=== PATIENT | male | born 2000 ===

== ENCOUNTER 2025-02-19 13:08 | Inpatient (IN) | payer MEDICARE, OTHER ==
[~2025-02-19] VITALS: Wt 104.2 kg
[2025-02-19 17:40] VITALS: BP 121/73
[2025-02-19] MEDS ORDERED: Aluminum Hydroxide 320MG/5ML 473 ML PO PRN (17:55)
[2025-02-19] MEDS ORDERED: Polyethylene Glycol 3350 17 gm PO PRN (18:00)
[2025-02-19] MEDS ORDERED: Ondansetron 4 MG SoluTab MM PRN (18:00)
[2025-02-19 18:02] VITALS: BP 121/73
--- NOTE | 2025-02-19 18:35 | NUR ---
ADMISSION ASSESSMENT: 17:33 PT WAS ADMITTED TO [facility] FROM [facility] VIA SECURE TRANSPORT. PT WAS FOUND BY HIS MOM STANDING IN THE OCEAN FULLY DRESSED. HE WAS BROUGHT INTO THE HOSPITAL BY HIS BROTHER. BY REPORT HE HAS BEEN OFF OF HIS MED. RN JOSEPHINE REPORTED THAT PT HAS BEEN EXIT SEEKING SINCE HIS ARRIVAL. SKIN CHECK WAS COMPLETED BY TWO RN'S REQUIRED. PT WAS UNCOOPERATIVE WITH THE INTAKE PROCESS, FORMS WERE SIGNED BY THE PT. HE WAS UNWILLING AT THE OTHER HOSPITAL TO TAKE ORAL MEDS AND WAS GIVEN VALIUM 10MG IM AND ZYPREZA 10MG IM WHEN HE BEGAN TO ESCALATE. HE IS NOW OM HIS DOORWAY TALKING WITH A PEER.
[2025-02-19 19:09] VITALS: BP 132/87
--- NOTE | 2025-02-20 05:45 | NUR ---
SHIFT SUMMARY Pt is A&O to self only, minimally cooperative, eye contact is appropriate. Pt denies SI, HI, and hallucinations. He also denies pain or other medical issues. Pt is disorganized, speech is low volume, pressured, rapid, and tangential, initially understandable when answering questions, but degrading into mumbling as he continues his answers; very hard to understand. Dayshift RN was unable to complete admission because of apparent paranoia he felt in the visitor room. This RN completed the admission assessments, but the patient did not want to go into a private setting, preferring to have the assessment done in the jaramillo just outside his room. Pt denies SI and HI. He would not answer any questions RT hallucinations. Insight and judgement are poor to non-existent. Pt retired to his room after evening snack, but was up most of the night. Staff offered the sensory room, which he accepted for about an hour before returning to his room. Pt did appear to be sleeping by about 0500. Pt is on q15m safety precautions per unit protocol.
[2025-02-20] MEDS ORDERED: Multivitamins 1 Tab PO SCH (09:00)
[2025-02-20 09:22] VITALS: BP 124/79
--- NOTE | 2025-02-20 18:24 | NUR ---
SHIFT SUMMARY PT ADMITTED FOR PSYCHOSIS. PT'S SPEECH IS TANGENTIAL, MUMBLED, AND AT TIME WORD SALAD. FOR THIS REASON IT IS HARD TO ASSESS PT. HE IS SOMEWHAT GUARDED AND HAS PARANOID DELUSIONS. PT ATTENDED GROUPS AND MEALS THIS SHIFT. HE IS COOPERATIVE WITH CARE. CONTINUES TO BE MONITORED Q15 PER UNIT PROTOCOL.
[2025-02-20] MEDS ORDERED: LORazepam 2 MG/ML 1ML Injection IM PRN (19:05)
[2025-02-20] MEDS ORDERED: DiphenhydrAMINE HCl 50 MG/ML 1ML Vial IM PRN (19:05)
[2025-02-20] MEDS ORDERED: Haloperidol Lactate Inj. 5 MG/ML Injection IM PRN (19:05)
[2025-02-20 20:50] VITALS: BP 123/78
--- NOTE | 2025-02-20 23:21 | NUR ---
Patient had 1/4 cup of ice cream at snack time, then refused any further meds or food after trazodone and belatonin. Explained thata esau Smith would help him with his sleep as well, and that he would feel more like participating tommorow during the day.
--- NOTE | 2025-02-21 00:26 | NUR ---
Encouraged patient to take a second Trazodone, but he didn't want to. Wide awake, standing in corner of room. Will continue close observation every 15 minutes for safety and comfort.
--- NOTE | 2025-02-21 01:26 | NUR ---
patient wide awake still and sitting up in bed aginst the wall. Agreed to take Zyprexa Zydis for a MASS score of 4. will continue monitoring
--- NOTE | 2025-02-21 04:36 | NUR ---
Patient is very alert, however unsure about orientation due to mumbling and word salad most of the time when conversing. Patient does get some words out to make his point when confronted with food or medications. Early in the evening, the patient came to this RN and asked what meds would he be expected to take at bedtime. I told him trazodone and melatonin. He said with ice cream. After taking the pills and eating one quarter of the ice cream, I explained that the Doctor had ordered something elso for him as well, and the patient refused before even talking about it. Patient stayed up sitting up and standing in his rom until approximately 0115, Zyprexa Zydis was offered to the patient to help him sleep and he took it. HE has been sleeping since 0145. Will continue observing every 15 minutes for patient safety and comfort
[2025-02-21 07:47] LABS: CHOL/HDL RATIO 2.4; Cholesterol 91 mg/dL (50-200); HDL Cholesterol 38 mg/dL (>39); LDL/HDL RATIO 1.1; Low Density Lipoprotein Chol 41 mg/dL (0-110); Triglycerides 61 mg/dL (30-140); Very Low Density Lipoprot Chol 12 mg/dL (6-28)
--- NOTE | 2025-02-21 17:31 | NUR ---
SHIFT SUMMARY PT IS AA&O TO SELF. HE IS PLEASANT AND COOPERATIVE WITH WITH CARE. EYE CONTACT IS LIMITED. SPEECH IS NONLINEAR AND UNORGANIZED. HE IS ABLE TO ANSWER SOME QUESTIONS WITH SHORT ONE OR TWO WORD RESPONSES BEFORE GOING OFF TOPIC. HE WAS COMPLIANT WITH MEDICATIONS THIS MORNING. HE WAS ABLE TO REPORT THAT ZYPREXA DID HELP LAST NIGHT. HE ALSO STATED THAT HE HAS TAKEN ABILIFY IN THE PAST AND DENIED ANY ISSUES. PLAN IS TO START ZYPREXA THIS EVENING AND ABILIFY IN THE AM. HE IS AGREEABLE. HE HAS BEEN UP FOR MEALS, SHOWER AND GROUPS. HE DENIES SI, HI. WILL CONTINUE PLAN OF CARE
[2025-02-21 19:58] VITALS: BP 120/79
--- NOTE | 2025-02-22 04:15 | NUR ---
Jesus is getting more alert and oriented each day. He spent most of his evening out in the milieu passing his time watching movies or attending snack time. He did have some dyspepsia early in the evening, and was able to express to me that he needed some Zofran which fixed him right up. Patient denies SI<HI and AVTH during evening assessment. Zyprexa given at bedtime and sleep came almost immediately. Will continue close observation every 15 minutes through the night for comfort and safety.
[2025-02-22 09:06] VITALS: BP 119/69
--- NOTE | 2025-02-22 10:39 | NUR ---
SHIFT ASSESSMENT: PT DENIED SI, HI, AVH AND ANXIETY. PT IS RESPONDING TO INTERNAL STIMULI. HE REPORTED LOW BACK PAIN, HE DECLINED ANY PAIN MED. WHEN ASKED ABOUT HIS MOOD HE REPLIED, "I'M A LITTLE HOMESICK." HE TOOK HIS MEDS AFTER A LITTLE ENCOURAGEMENT. PT HAS BEEN IN HIS ROOM TALKING TO HIMSELF. HE HAS BEEN COOPERATIVE AND PLEASANT.
[2025-02-22 20:22] VITALS: BP 153/81
--- NOTE | 2025-02-23 04:49 | NUR ---
SHIFT SUMMARY: PATIENT WAS IN HIS ROOM AT THE BEGINNING OF THE SHIFT, LYING ON HIS BED. HE WAS AWAKE AND WAS ABLE TO ANSWER SPLITTER MACHINE QUESTIONS. HIS ANSWERS WERE TANGENTIAL AND NONSENSICAL AT TIMES. HE DID HAVE QUESTIONS REGARDING HIS MEDICATIONS, SO WENT OVER THEM WITH RN, PARTICULARLY THOSE HE WOULD BE TAKING DURING THIS SHIFT. HE DECIDED TO STAY IN BED UNTIL SNACK TIME. HE DENIED SUICIDAL IDEATION, THOUGHTS OF SELF HARMING AND A/V/T HALLUCINATIONS, ALTHOUGH HE WAS HAVING CONVERSATIONS WITH UNSEEN OTHERS, AND REACTING WITH SMILES AND SOME LAUGHTER TO UNHEARD OTHERS. HE WAS COMPLIANT WITH EVENING MEDICATIONS. HE HAS APPARENTLY BEEN HAVING ISSUES EATING IN A ROOM WITH A LOT OF PEOPLE. HE STOOD BY FEMALE MHA DURING SNACK TIME AND DID NOT EAT. HE WAS COMPLIANT WITH EVENING MEDICATIONS, AND THEN ASKED FOR "CHEESE AND CRACKERS". RN WENT INTO THE DINING ROOM WITH HIM AND LET HIM HAVE HIS SNACK IN PRIVATE, AND HE DID EAT IT. HE WAS QUITE THANKFUL FOR THE OPPORTUNITY AND SEEMED TO NEED THIS QUIET TIME TO FEEL COMFORTABLE EATING. HE THEN WENT TO BED. HE HAD A RESTLESS NIGHT AND WAS OFTEN AWAKE, SOMETIMES SITTING UP AT THE END OF HIS BED. HE DID NOT COME OUT EXCEPT THE AFOREMENTIONED TIME AND ONCE TO ASK FOR WATER. CONTINUING TO MONITOR FOR SAFETY WITH Q15 MINUTE CHECKS.
[2025-02-23 08:56] VITALS: BP 119/76
[2025-02-23] MEDS ORDERED: ARIPiprazole 300 MG SUSER.SYR IM SCH (09:00)
--- NOTE | 2025-02-23 17:04 | NUR ---
SHIFT SUMMARY: PT CALM AND ALERT. STATES THAT HE SLEPT OK. PT DENIED SI AND HI BUT STATED THAT HE DOES HAVE HALUCINIATIONS. PT APPEARED TO BE RESPONDING TO INTERNAL STIMULI AT TIMES. PT DIFFICULT TO ASSESS, HE WOULD SPEAK A FEW WORDS AND THEN DEGRESS INTO WORD SALAD SPEAKING NONSENSICAL WORDS. PT CAME TO THE NURSES STATION LATER IN SHIFT, STATED "I NEED SOMETHING" WHEN ASKED WHAT HE WE COULD HELP HIM WITH HE STATED, " I DON'T NEED ANYTHING AND WALKED AWAY". PT REFUSED HIS INJECTION THIS MORNING. STATED, "I DON'T WANT THAT, I ALREADY TOLD THEM THAT". PT WAS COMPLIANT WITH PO MEDS. HE WAS OFFERED THE INJECTION AGAIN LATER IN THE DAY, HE STATED, "NO" AND THEN STARTING MUMBLING IN WORD SALAD. PT SPENT TIEM IN HIS ROOM, WAS IN AND OUT OF GROUPS AND ATTENDED MEALS. PT MONITORED FOR SAFETY WITH Q 15 MIN CHECKS PER PROTOCOL.
[2025-02-23 19:49] VITALS: BP 118/75
--- NOTE | 2025-02-23 20:41 | NUR ---
MEDICATION ADMINISTRATION: PATIENT REQUESTED MELATONIN AND OLANZAPINE FOR BEDTIME ADMINISTRATION. HE STATED "THOSE AT THE ONES THAT HELP ME". ANXIETY LEVEL 4/10 EVIDENCED BY MOVING AROUND A LOT AND SHAKY VOICE WHEN SPEAKING, RUBBING HANDS TOGETHER. CONTINUING TO MONITOR FOR EFFECTIVENESS AND SAFETY.
--- NOTE | 2025-02-24 04:19 | NUR ---
SHIFT SUMMARY: PATIENT WAS IN THE HALLWAY PACING AT THE BEGINNING OF THE SHIFT. HE APPROACHED RN AND SPOKE IN NONSENSICAL SENTENCES, SMILING AND ENDING WITH "AND IT WAS GREAT". HE WAS ABLE TO ANSWER VOLUNTEER SERVICES SUPERVISOR QUESTIONS, BUT NOT ALWAYS IN AN UNDERSTANDABLE WAY. HE PRESENTED FRIENDLY AND COOPERATIVE. HE LISTENED TO MEDICATION EDUCATION AND PONDERED HIS CHOICES, THEN STATED, DEFINITIVELY, THAT HE WANTED "MELATONIN AND OLANZAPINE". HE DENIED SUICIDAL IDEATION AND THOUGHTS OF SELF HARMING. HE DENIED A/V/T HALLUCINATIONS, BUT APPEARED TO BE CONVERSING WITH UNSEEN/UNHEARD OTHERS AT TIMES, LESS SO THAN YESTERDAY. HE CAME TO SNACK AND WRAP UP GROUP AT 2030, AND FILLED OUT HIS WRAP UP PAPER. HE TRIED TO HAVE A SNACK BUT ENDED UP NOT EATING IT. HE WAS COMPLIANT WITH EVENING MEDICATIONS. HE WENT TO HIS ROOM AFTER SNACK, BUT CAME OUT A FEW TIMES, APPEARING TO THINK ABOUT JOINING THE GROUP IN THE DAY ROOM, BUT NOT QUITE ABLE TO DO SO. HE SAT ON HIS BED FOR A TIME AND SMILED AND SPOKE WHEN ROUNDS WERE DONE. HE WAS RESTING QUIETLY IN BED BY 2300, WITH EYES CLOSED AND RESPIRATIONS CONFIRMED. CONTINUING TO MONITOR FOR SAFETY WITH Q15 MINUTE CHECKS.
[2025-02-24 08:58] VITALS: BP 127/76
--- NOTE | 2025-02-24 09:40 | NUR ---
SPOKE TO PATIENT REGARDING ABILIFY INJECTION. PATIENT EXPRESSED THAT HE DID NOT WANT TO "TAKE ALOT OF MEDICATION" AND THAT IT WAS "NOT HIS THING" EDUCATED PATIENT ON THE BENEFIT OF ABILIFY IM AND THAT ONCE ESTABLISHED ON THE MEDICATION HE WOULD ONLY NEED TO TAKE IT ONCE A MONTH. HE THEN AGREED TO INJECTION. INJECTION GIVEN IM IN RIGHT DELTOID. PT TOLERATED WELL.
[2025-02-24] MEDS ORDERED: ARIPiprazole 300 MG SUSER.SYR IM SCH (10:00)
--- NOTE | 2025-02-24 17:00 | NUR ---
SHIFT SUMMARY: PT ALERT AND COOPERATIVE WITH CARE. HE WAS PRESENT ON THE UNIT AND TALKATIVE WITH STAFF. PT DENIED SI AND HI BUT DID APPEAR TO BE RESPONDING TO INTERNAL STIMULI. PT SPENT TIME DRAWING AND COLORING AND RESTING IN HIS ROOM.
--- NOTE | 2025-02-24 20:38 | NUR ---
MEDICATION ADMINISTRATION: PATIENT RECEIVED MEDICATION ADMINISTRATION, INCLUDING WHAT HIS NEEDED MEDICATIONS ARE AND WHAT THEY ARE EXPECTED TO DO. HE THOUGHT ABOUT IT FOR A TIME, AND STATED THAT HE WANTED "TRAZODONE AND MELATONIN". HE WAS GIVEN THOSE MEDICATIONS AT BEDTIME MEDICATION ADMINISTRATION. CONTINUING TO MONITOR FOR EFFECTIVENESS AND SAFETY.
[2025-02-24 20:40] VITALS: BP 130/81
--- NOTE | 2025-02-25 04:36 | NUR ---
SHIFT SUMMARY: PATIENT WAS IN THE DINING AREA AT THE BEGINNING OF THE SHIFT. HE THEN CAME OUT AND GREETED RN, THEN WENT TO HIS ROOM, WHERE HE WAS AWAKE ON HIS BED. HE WAS ABLE TO PARTICIPATE IN LABORATORY ENGINEER WITH SOME LINEAR ANSWERS, ALTHOUGH HE CONTINUED TO HAVE FLIGHT OF IDEAS AND NONSENSICAL SPEECH. HE STATED THAT HE IS "HAPPY" AND THINGS ARE "GREAT" AND HE WAS SMILING AND PLEASANT. HE DENIED SUICIDAL IDEATION "NO, NO, I DON'T DO THAT", THOUGHTS OF SELF HARMING AND A/V/T HALLUCINATIONS. HE APPEARED TO BE RESPONDING TO UNSEEN/UNHEARD OTHERS AT TIMES, BUT NOT FREQUENTLY THE PREVIOUS EVENING SHIFT. HE STATED THAT HE WANTED "MELATONIN AND TRAZODONE" AT BEDTIME. HE PARTICIPATED IN SNACK TIME AND WRAP UP GROUP. HE WROTE MORE ON HIS PAPER THAN HE HAS IN THE PAST, AND HE ATE A POPSICLE SORT OF ITEM. HE WAS COMPLIANT WITH EVENING MEDICATIONS. HE TOOK AT LEAST TWO SHOWERS THIS SHIFT, BUT DOESN'T APPEAR TO BE USING SOAP, ALTHOUGH HE SMILES AND ACCEPTS IT. HE CAME OUT A FEW TIMES, AND APPROACHED RN, BUT DID NOT WANT ANY PRN MEDICATIONS, ASKING ONLY FOR WATER AND SAYING "I'M FINE, I'LL BE FINE" AND GOING BACK TO HIS ROOM. HE DID APPEAR TO SLEEP AT TIMES, BUT WAS OFTEN AWAKE DURING THE SHIFT. CONTINUING TO MONITOR FOR SAFETY WITH Q15 MINUTE CHECKS.
[2025-02-25 08:59] VITALS: BP 122/72
--- NOTE | 2025-02-25 17:13 | NUR ---
PT ALERT AND COOPERATIVE, COMPLIANT WITH MEDICATIONS. PT ATTENDED MEALS AND WAS PRESENT ON THE UNIT. HE DENIED SI, HI AND AVH BUT APPEARED TO BE RESPONDING TO INTERNAL STIMULI. PT ENGAGED IN CONVERSATION OFF AND ON THROUGHOUT THE DAY. THE CONVERSATIONS WERE MOSTLY TANGINTAL AND DIFFICULT TO FOLLOW. NOTED TO TAP ON TABLES, DOORWAYS AND THE FLOOR OFTEN WHILE MUMBLING WORDS I WAS NOT ABLE TO UNDERSTAND. PT SAT IN THE DAY ROOM IN THE EVENING AND WATCHED TV OFF AND ON.
[2025-02-25 20:50] VITALS: BP 104/79
--- NOTE | 2025-02-26 04:12 | NUR ---
SHIFT SUMMARY: PATIENT WAS IN HIS ROOM AT THE BEGINNING OF THE SHIFT, AWAKE ON HIS BED. HE WAS ABLE TO ANSWER QUALITY CONTROL SPECIALIST QUESTIONS WITH SLIGHT DELAYS AND SOME NONSENSICAL SPEECH. HE STATED HE WAS "HAPPY" AND THINGS ARE "GREAT". HE WAS ABLE TO ASK "HOW ARE YOU?" AND STATE THAT HE WAS "FINE, GOOD". HE DENIED ANY SUICIDAL IDEATION OR THOUGHTS OF SELF HARMING. HE ALSO DENIED A/V/T HALLUCINATIONS, ALTHOUGH IT APPEARED THAT HE WAS CONVERSING AND RESPONDING TO UNSEEN/UNHEARD OTHERS, ALTHOUGH LESS THAN PRIOR SHIFTS. HE DECLINED ANY OFFER OF PRN MEDICATIONS. HE PARTICIPATED IN SNACK AND WROTE ON HIS WRAP UP GROUP SHEET. HE WAS UP AND DOWN MOST OF THE NIGHT, AT TIMES STANDING OR PACING IN THE HALLWAY WRAPPED IN HIS BLANKET. HE CONTINUED TO DENY ANY NEED FOR ANYTHING OTHER THAN WATER, AND PRESENTED CONTENT. CONTINUING TO MONITOR FOR SAFETY WITH Q15 MINUTE CHECKS.
[2025-02-26 07:58] VITALS: BP 118/80
--- NOTE | 2025-02-26 17:41 | NUR ---
SHIFT SUMMARY PT AxOx3 WITH INTERMITTENT DELUSIONAL THINKING AND/OR CONFUSION. PT IS PLEASANT AND COOPERATIVE WITH CARE, BUT HE SEEMS TO ONLY BE ABLE TO STAY ON TOPIC WITH CONVERSATIONS APPROX HALF OF THE TIME. HE TENDS TO GO OFF ON RAMBLING TANGENTS THAT AREN'T APPROPRIATE IN CONTEXT AND END WITH MUMBLING WHISPERS. IT CAN BE QUITE DIFFICULT TO UNDERSTAND HIM. HE DID DENY SI/HI AND AVTH, BUT APPEARED TO BE RESPONDING TO INTERNAL STIMULI EVIDENCED BY HIS BEHAVIORS OF STARING OFF, TALKING TO THE COX, AND TAPPING VARIOUS BODY PARTS IN RHYTHMIC MOVEMENTS. HE IS USUALLY EASILY REDIRECTABLE. PT HAS BEEN TAKING MEDICATIONS PRESCRIBED AND ATTENDING MILIEU GROUPS. HE IS CURRENTLY IN GROUP ROOM WATCHING TV. HE DENIES ANY NEEDS AT THIS TIME. NO IMMINENT DC PLANS AT THIS TIME.
[2025-02-26 21:15] VITALS: BP 130/70
--- NOTE | 2025-02-27 04:20 | NUR ---
SHIFT SUMMARY PT IN HIS ROOM SITTING QUIETLY ON BED AT THE START OF MY SHIFT. HE IS CALM AND COOPEARTIVE WITH CARE. HE IS SOFT SPOKEN AND DIFFICULT TO HEAR AT TIMES. HE DENIES ANY SI, HI OR THOUGHTS OF SELF HARM. HE REPORTS THAT HE ALWAYS HAS AUDITORY AND VISUAL HALLUCINATIONS, BUT DID NOT ELABORATE ON SPECIFIC HALLUCINATIONS WHEN ASKED. HE DENIES ANY COMMAND HALLUCINATIONS. HE IS RESPONDING TO INTERNAL STIMULI. SPEECH IS TANGENTIAL, FLIGHT OF IDEAS AND OVERABUNDANCE OF THOUGHTS. HE STATED THAT HE DID NOT SLEEP WELL LAST NIGHT AND THAT HE RARELY SLEEPS. OFFERED PRN MEDICATION TO ASSIST WITH SLEEPING BUT PT REFUSED. HE HASN'T APPEARED TO SLEEP AT ALL DURING THE NIGHT. HE HAS REMAINED CALM AND COOPERATIVE AND CONTINUED TO REFUSE ANY PRN MEDICATIONS FOR INSOMNIA. PT IS CURRENTLY IN THE SENSORY ROOM, SITTING QUIETLY. Q15 MINUTE CHECKS TO CONTINUE PER PT SAFETY/UNIT PROTOCOL.
--- NOTE | 2025-02-27 05:12 | NUR ---
END OF SHIFT UPDATE PT PRESENTED TO NURSES STATION AT APPROXIMATELY 0450, HE WAS RESTLESS, WITH DISORGANIZED THOUGHTS, STATED HE WAS ANXIOUS AND REQUESTED ZYPREXA. MASS SCORE OF 5 AND PT RECEIVED ZYPREXA. HE IS CURRENTLY SITTING IN HALLWAY NEAR NURSES STATION. Q15 MINUTE CHECKS TO CONTINUE PER PT SAFETY/UNIT PROTOCOL.
--- NOTE | 2025-02-27 05:59 | NUR ---
END OF SHIFT UPDATE PT IN SENSORY ROOM. HE CONTINUES TO BE RESTLESS AND HAVE DISORGANIZED THINKING. HE STATES HE IS ANXIOUS AND THAT HE WOULD LIKE ANOTHER ZYPREXA IF ALLOWED. MASS SCORE OF 4. PT RECEIVED ADDITIONAL DOSE OF ZYPREXA PER PRN ORDERS. Q15 MINUTE CHECKS TO CONTINUE PER PT SAFETY/UNIT PROTOCOL.
--- NOTE | 2025-02-27 08:52 | NUR ---
NURSE NOTE PT SLEEPING THROUGH THE FIRST PART OF THIS SHIFT SO FAR. HE FELL ASLEEP JUST PRIOR TO THE START OF THE SHIFT AND IT HAS BEEN REPORTED THAT HE HAS NOT SLEPT IN DAYS. WILL ALLOW PT TO CONITNUE TO GET REST. WILL CONINTUE WITH Q15 MIN SAFETY CHECKS. PT DEMONSTRATES OBVIOUS CHEST RISE AND FALL AND IS SWITCHING HIS POSITIONS INDEPENDENTLY PRN.
--- NOTE | 2025-02-27 13:39 | NUR ---
CONTACT NOTE PT'S MOTHER CALLED AND SHE STATES SHE WANTED TO SEE IF HE WANTED TO TALK TO HER OR HAVE A VISIT FROM HER. SHE LEFT HER NUMBER FOR THE PT. PT WAS GIVEN HER MESSAGE AND NUMBER BUT HE IS SPEAKING TANGENTIAL AND THIS RN IS NOT ABLE TO RECOGNIZE WHAT PT IS SAYING ABOUT HER BEING ON HIS VISITOR LIST. SHE WAS NOT PLACED ON THE LIST D/T THE ONLY WORD RECOGNIZABLE WAS "NO." THIS RN ALSO ASKED IF THE MOTHER COULD KNOW HE WAS HERE AND HE ANSWERED TANGENTIAL AND SAID "SURE."
--- NOTE | 2025-02-27 17:37 | NUR ---
SHIFT SUMMARY PT SLEPT THROUGH THE MORNING. SEE PREVIOUS NOTES. AFTER LUNCH HE STAYED ACTIVE IN THE MILIEU AND INTERACTED WITH PEERS. HE ATTENDED 1-2 GROUPS IN THE AFTERNOON. PT WAS ENCOURAGED TO SHOWER BUT STATES TO STAFF THAT HE ALREADY SHOWERED. HE DID PRESENT IN THE HALLWAYS WITH WET HAIR, BUT HE DID NOT SHOWER WITH SOAP. PT DENIES HI/SI. WHEN ASKED IF HE HAS AVH HE STATES,"WELL YES, BUT THEY DON'T INVOLVE YOU." HE IS RESPONDING TO INTERNAL STIMULI T/O THE DAY AND HE CONTINUES TO SPEAK TANGENTIAL. HE DID SPEAK ON THE PHONE WITH HIS MOTHER IN THE EVENING BEFORE DINNER. PT WAS DANCING IN THE HALLWAYS BEFORE DINNER AND SPENDING TIME IN THE GROUP ROOM. HE HAS BEEN CALM THIS SHIFT.
[2025-02-27 21:03] VITALS: BP 115/77
--- NOTE | 2025-02-28 04:38 | NUR ---
SHIFT SUMMARY PT TOOK A SHOWER AT THE START OF SHIFT AND WAS THEN PRESENT IN THE MILIEU. HE SPEAKS SOFTLY AND IS DIFFICULT TO HEAR AT TIMES. HE DENIES ANY SI OR HI. HE RESPONDS TO INTERNAL STIMULI AND REPORTS AUDITORY AND VISUAL HALLUCINATIONS, BUT DID NOT SPECIFY WHAT HE SEES OR HEARS. HE REPORTED FEELING ANXIOUS, AND HAS TANGENTIAL, DISORGANIZED THOUGHT PROCESS. HE REFUSED HIS SCHEDULED ATIVAN. HE REQUESTED AND RECEIVED PRN ZYPREXA FOR A MASS SCORE OF 5. APPROXIMATELY AN HOUR LATER MASS SCORE WAS AT 4 AND PT RECEIVED AN ADDITIONAL DOSE OF ZYPREXA PER PRN ORDERS. HE HAD EVENING SNACK AND WENT TO BED AT APPROXIMATELY 2130. HE DID NOT APPEAR TO FALL ASLEEP UNTIL AROUND 2330. PT HAS REMAINED IN BED THROUGHOUT THE NIGHT. Q15 MINUTE CHECKS TO CONTINUE PER PT SAFETY.
[2025-02-28 08:49] VITALS: BP 122/78
--- NOTE | 2025-02-28 13:35 | NUR ---
PATIENTS MOTHER CALLED. SHE STATES THAT THE ONLY MEDICATION THAT HAS EVER WORKED WELL FOR THIS PATIENT IS CLOZAPINE. SHE SAYS THAT THE MEDICATION BROUGHT 'HER SON' BACK TO HIMSELF. WHILE TAKING THE MED, HE HAD A RUN OF THREE YEARS WITHOUT HOSPITALIZATION. SHE STATES THE CLOZAPINE DIMINISHES HIS DISORGANIZED THINKING AND TALKING. DR. Laird ([facility]) IS THE PRESCRIBER OF THE CLOZAPINE. MOTHER REPORTS THAT THE ACT TEAM THE PATIENT IS TRYING TO INVOLVE HIMSELF WITH IS ONLY A 1/2 BLOCK AWAY FROM THE PATIENTS HOUSE. SHE IS VERY HOPEFUL OF THE PATIENT HAVING SOME NEW RESOURCES UPON DISCHARGE. SHE PLANS TO COME VISIT THIS WEEKEND.
--- NOTE | 2025-02-28 16:45 | NUR ---
Patient appears to not like to eat in front of others, or when the dining area is full. However, today MHPadmini Ramos reported that this patient ate the food that was packaged (cheerios and yogurt) quickly like he was really hungry. Many others were present in the dining area at that time and this had no effect on him. Then, during phone time today, the patient wanted to use the phone. One of the patient phones was sitting up on the ledge by nursing because another person had just got off a call. When this feature writer handed him the phone, he insisted that that particular phone doesn't work to dial out. I offered to dial and did so, but the patient wanted a different phone. It appears that paranoia may be starting. The patient told this feature writer "I used to live with you". "Your name is Madiha". I assured him that I was not his friend Madiha, but maybe looked like her. Patient could be seen becoming anxious, dudring this conversation, and he fluttered his eyes up x 2, so that the whites were mostly showing, then he walked into the day area to go outside.
--- NOTE | 2025-02-28 17:31 | NUR ---
SHIFT SUMMARY THIS SHIFT PT WAS VERBALLY UNDERSTANDING MORE THAN YESTERDAY. HE WAS ARTICULATING WORDS, STILL TANGENTIAL SPEECH, BUT LINEAR ON SUBJECT. HE IS ABLE TO STATE HIS NEEDS MORE. HE IS EASILY REDIRECTED. PT STATED THE DESIRE TO LEAVE TODAY STATING "CAN SOMEONE ESCORT ME OUT OF HERE?" HE DENIES SI/HI BUT WAS VERY TRANSGENTIAL WHEN ASKED ABOUT ALL HAULLUCINATIONS AND APPEARS TO BE RESPONDING TO AVH. HE DRAWS ON THE PALMS OF HIS HANDS WITH HIS FINGERS IF WRITING A NOTE AND HE DOES FREQUENT WRIST MOVEMENTS. PT TOOK AT LEAST TWO SHOWERS THIS SHIFT THAT ARE KNOWN. HE WAS COMPLIANT WITH ALL MEDICATIONS. HE IS GUARDED ABOUT HIS FOOD AND VERY DECISIVE ABOUT WHAT HE EATS. THE MHA NOTED THAT HE IS COMFORTABLE EATING UNOPENED SINGLE CEREAL CONTAINERS. HIS MOTHER SPOKE TO CARMEN CASEY ABOUT MIS MEDICATIONS, PLEASE SEE CHARTING FOR THIS SHIFT.
[2025-02-28 20:06] VITALS: BP 113/73
--- NOTE | 2025-03-01 04:30 | NUR ---
SHIFT SUMMARY PT PRESENT IN MILIEU AT START OF SHIFT. HE REPORTS HIS MOOD "GOOD. I'M BORED. I WANT MY GUITAR." HIS SPEECH IS A LITTLE LESS TANGENTIAL THAN MY PREVIOUS SHIFT AND PT INITIATING CONVERSATION MORE. HE DENIES ANY SI OR HI. HE IS RESPONDING TO INTERNAL STIMULI AND ADMITS TO AUDITORY AND VISUAL HALLUCINATIONS. HE WAS COMPLIANT WITH MEDS AND HAD EVENING SNACK. HE WENT TO HIS ROOM AFTER SNACK BUT WAS UP AND DOWN, RESTLESS, AND ADMITTED TO FEELING ANXIOUS, MASS SCORE OF 4. HE RECEIVED PRN ZYPREXA AT APPROXIMATELY 2210. HE LAYED IN BED AWAKE UNTIL AROUND MIDNIGHT. AT 0330 PT PRESENTED TO NURSES STATION, ASKING FOR WATER. HE HAS REMAINED AWAKE AND IS CURRENTLY SITTING QUIETLY IN THE SENSORY ROOM. HE DENIES ANY CURRENT NEEDS. Q15 MINUTE CHECKS TO CONTINUE PER PT SAFETY.
[2025-03-01 15:37] LABS: BASOPHILS ABSOLUTE AUTO 0.00 K/mm3 (0.00-0.23); BASOPHILS PERCENT AUTO 0 % (0-2); EOSINOPHILS ABSOLUTE AUTO 0.01 K/mm3 (0.00-0.68); EOSINOPHILS PERCENT AUTO 0 % (0-6); Hematocrit 42.8 % (37.0-53.0); Hemoglobin 15.2 g/dL (13.5-17.5); IMMATURE GRAN ABSOLUTE AUTO 0.02 K/mm3 (0.00-0.10); IMMATURE GRAN PERCENT AUTO 0 % (0-1); LYMPHOCYTES ABSOLUTE AUTO 1.98 K/mm3 (0.84-5.20); LYMPHOCYTES PERCENT AUTO 28 % (21-46); MONOCYTES ABSOLUTE AUTO 0.75 K/mm3 (0.16-1.47); MONOCYTES PERCENT AUTO 11 % (4-13); Mean Corpuscular HGB Conc 35.5 g/dL (31.5-36.5); Mean Corpuscular Volume 90 fL (80-100); NEUTROPHILS ABSOLUTE AUTO 4.24 K/mm3 (1.96-9.15); NEUTROPHILS PERCENT AUTO 61 % (41-73); NRBC ABSOLUTE 0.00 K/mm3 (0.00-0.02); NRBC Auto 0.0 /100 WBC (0.0-0.2); Platelet Count 166 K/mm3 (150-400); RDW Coefficient Variation 13.2 % (11.7-14.2); RDW Standard Deviation 43.6 fL (35.1-46.3)
[2025-03-01 16:24] LABS: Alanine Aminotransfer (ALT/SGP 29.0 U/L (12-78); Albumin, Blood 4.1 g/dL (3.4-5.0); Albumin/Globulin Ratio 1.5 (0.8-1.8); Anion Gap 9.0 mmol/L (3-11); Aspartate Aminotrans (AST/SGOT 14.0 U/L (12-37); Bilirubin, Total 0.9 mg/dL (0.1-1.0); Blood Urea Nitrogen 9.0 mg/dL (8-24); C-Reactive Protein, High Sens. 1.28 mg/L (0.000-3.000); CO2, Blood 27.0 mmol/L (21-32); Calcium, Blood 8.9 mg/dL (8.5-10.1); Chloride, Blood 106.0 mmol/L (98-108); Creatinine, Blood 0.7 mg/dL (0.60-1.20); Globulin, Blood 2.8 g/dL (2.2-4.0); Glucose, Blood 94.0 mg/dL (70-99); Potassium, Blood 3.6 mmol/L (3.5-5.5); Sodium, Blood 138.0 mmol/L (136-145); Thyroid Stimulating Hormone 2.13 uIU/mL (0.360-4.800); Total Protein, Blood 6.9 g/dL (6.4-8.2)
--- NOTE | 2025-03-01 17:11 | NUR ---
SHIFT SUMMARY NO ACUTE EVENTS TODAY. DIFFICULT TO ASSESS, BUT APPEARS THAT PT DENIES SI, HI, VTH, BUT APPEARS TO ENDORSE AUDITORY HALLUCINATIONS "WHISPERS". DIFFICULT TO ASSESS D/T PT'S TANGENTIAL, CIRCUMSTANTIAL, AND LOOSE ASSOCIATION SPEECH PATTERN. PT ALTERNATES BETWEEN THE THREE SPEECH PATTERNS. PT GOES TO GROUPS AND INTERACTS W/ STAFF, BUT CONTINUES TO APPEAR TO BE RESPONDING TO INTERNAL STIMULI. NO ACUTE EVENTS TODAY.
[2025-03-01 19:28] VITALS: BP 128/75
--- NOTE | 2025-03-01 22:58 | NUR ---
PT IS SMILING AND TALKATIVE, PT IS INTERACTING WITH PEERS, SOMETIMES NONSENSICAL SPEECH, BUT WITH MUCH ANIMATION. PT IS ABLE TO STATE HE IS IN [place] AND THE MONTH IS FEBRUARY, HE REPORTS HIS MOOD IS "GOOD," HE DENIES ANY SI/HI, HE REPORTS AUDITORY HALLUCINATIONS BUT DOES NOT ELABORATE, WHEN DISCUSSING HE STATES "THE BEANBAG TOLD ME THAT IS TOO PERSONAL." PT IS COOPERATIVE WITH CARE, WHEN TAKING MEDICATION HE SPEAKS POSITIVE AFFIRMATIONS TO THE PILL PRIOR TO INGESTING. PT HAS LAID DOWN AND APPEARS TO BE SLEEPING, WILL CONTINUE Q15 MONITORING FOR SAFETY AND STATUS CHANGES.
--- NOTE | 2025-03-02 05:55 | NUR ---
Patient slept until 0500 at which time he woke and took a shower. Cindy has been resting in the sensory room since 0530. He is calm, cooperative, quiet, and appears to be praying at times. No concerns to report at this time. Will continue to monitor
[2025-03-02 07:12] VITALS: BP 133/74
--- NOTE | 2025-03-02 17:49 | NUR ---
SHIFT SUMMARY NO ACUTE EVENTS TODAY. APPEARS TO DENY SI, HI, ATH. CONTINUES TO BE DIFFICULT TO ASSESS D/T TANGENTIAL, CIRCUMSTANTIAL SPEECH (PT ALTERNATES BETWEEN THE TWO). WHEN ASKED ABOUT VISUAL HALLUCINATIONS PT DENIED INITIALLY, BUT THEN MENTIONED SEEING "SHADOW MONSTERS". PT TALKING TO SELF T/O DAY. ATTENDED GROUP, ATE MEALS, AND HAS INTERACTED W/ PEERS/WAS IN DAYROOM INTERMITTENTLY T/O DAY.
[2025-03-02 19:56] VITALS: BP 121/69
--- NOTE | 2025-03-03 06:04 | NUR ---
SHIFT SUMMARY Pt is A&O, calm, cooperative, eye contact is appropriate. Pt s mood is pretty good, affect is blunted. Pt denies SI, HI, and all hallucinations. Pt also denies current pain. Pt is overall cooperative and pleasant. Pt appears somewhat disheveled, his speech is circumstantial and tangential. He appears somewhat disheveled. Pt most of the evening watching TV in the dayroom. Pt was out of his room several times overnight and appeared to sleep only about 4 hours. Staff continues to monitor q15m for safety and wellness.
[2025-03-03 08:46] VITALS: BP 140/75
[2025-03-03] MEDS ORDERED: MetFORMIN HCl 500 mg PO SCH (17:00)
--- NOTE | 2025-03-03 17:52 | NUR ---
SHIFT SUMMARY NO ACUTE EVENTS TODAY. APPEARS TO DENY SI, HI, AVTH. PT CONTINUES TO RESPOND TO INTERNAL STIMULI AND IS DIFFICULT TO ASSESS SI, HI, AVTH. THIS EVENING PT APPEARED MORE COHERENT AND WAS ABLE TO ASK AND ANSWER ONE QUESTION APPROPRIATELY.
[2025-03-03 19:43] VITALS: BP 124/79
--- NOTE | 2025-03-04 05:14 | NUR ---
SHIFT SUMMARY Pt is A&O to self, location, time. Calm, cooperative, eye contact is appropriate. Pt s stated mood is on point, affect is constricted. Pt denies SI, HI, and all hallucinations, however he has been noted talking to himself as he walks down the hallway. Pt denies pain or other medical issues. Pt is circumstantial, tangential, and flighty, but is speaking somewhat clearer than when consumer loan underwriter has engaged with pt before. Pt was asked about his 4 hours of sleep the previous night and he replied that he normally sleeps longer than that. Pt educated on increased clozapine dose. Pt spent the evening out on the milieu, using the sensory room and walking the hallway. Staff continues to monitor q15m for safety and wellness.
[2025-03-04 09:16] VITALS: BP 120/76
--- NOTE | 2025-03-04 16:14 | NUR ---
SHIFT SUMMARY DENIES SI AND HI. APPEARS TO ENDORSE VISUAL AND AUDITORY HALLUCINATIONS. DIFFICULT TO ASSESS D/T THOUGHT PROCESS, BUT APPEARS MORE CLEAR THAN PREVIOUS SHIFT FOR THIS RN. PT IS ABLE TO MAKE COHERENT SENTENCES AND IS MORE EASILY REDIRECTIBLE. PREVIOUS COMMUNITY NOTES HAD SCATTERED UNINTELLIBLE WRITING ALL OVER THE PAGE, TODAY WAS MORE APPROPRIATE (LESS SCATTERED AND WORDS WRITTING ON LINES INSTEAD OF ALL OVER, BUT DID INCLUDE NONSENSICAL WRITING.
[2025-03-04 19:24] VITALS: BP 127/78
--- NOTE | 2025-03-05 05:25 | NUR ---
SHIFT SUMMARY Pt is A&O to self, location, time. Calm, cooperative, eye contact is appropriate. Pt s stated mood is "expected," affect is constricted. Pt denies SI, HI, and all hallucinations. Pt denies pain or other medical issues. Pt is circumstantial, tangential, but is speaking a bit clearer. Pt spent the evening out on the milieu, sitting in TV room or walking the hallway. Staff continues to monitor q15m for safety and wellness.
[2025-03-05 08:09] VITALS: BP 127/81
--- NOTE | 2025-03-05 16:47 | NUR ---
SHIFT SUMMARY: PT ALERT, ORIENTED AND COOPERATIVE WITH CARE. DENIES SI AND HI. PT WAS PRESENT ON THE UNIT, ATTENDED MEALS AND GROUPS. SPENT TIME IN THE DAY ROOM WATCHING TV AND TALKING WITH PEERS. PT TANGENTIAL IN SPEECH AT TIMES BUT IS ABLE TO COMMUNICATE NEEDS.
--- NOTE | 2025-03-06 06:11 | NUR ---
SHIFT SUMMARY Pt is A&O to self and place. Calm, cooperative, eye contact is appropriate. Pt s stated mood is better, affect is constricted. Pt denies SI, HI, and all hallucinations, but was noted talking to self as physician underwriter approached pt s room. Pt denies pain or other medical issues. Pt is circumstantial and tangential, but speech is becoming more clear. Pt was active on the milieu during the evening, retiring to his room after receiving his HS medications. Staff continues to monitor q15m for safety and wellness.
[2025-03-06 07:23] VITALS: BP 122/69
--- NOTE | 2025-03-06 17:08 | NUR ---
SHIFT SUMMARY PT AxOx3 WITH INTERMITTENT CONFUSION AND DISORGANIZED SPEECH. HE IS PLEASANT AND COOPERATIVE WITH CARE, ABLE TO MAKE NEEDS KNOWN AND REORIENTS EASILY, BUT HE STILL DISPLAYS TANGENTIAL SPEECH. THIS WAS NOTED WHEN ATTEMPTING TO CARRY ON A CONVERSATION WITH PT FOR MORE THAN A COUPLE MINUTES. HE TENDS TO START OUT CONVERSATIONS SEEMINGLY CLEAR MINDED, THEN TRAILS OFF AND MUMBLES INTO DIFFERENT TOPICS THAT DON'T ALWAYS MAKE SENSE. HE ALSO APPEARS TO GET NERVOUS/STRESSED SOMETIMES DURING CONVERSATIONS AND LOOKS AWAY OR HIS EYES GET DODGY. PT DOES BETTER WITH SHORTER CONVERSATIONS AND DIRECT QUESTIONING. PT HAS OTHERWISE BEEN FOLLOWING TREATMENT PLAN INCLUDING TAKING ALL MEDICATIONS PRESCRIBED, ATTENDING ALL MILIEU THERAPY GROUPS AND MINGLING APPROPRIATELY WITH STAFF/PEERS ON THE UNIT. PT DENIED SI/HI AND AVTH THIS SHIFT. HIS CURRENT DISCHARGE PLAN IS TO CONTINUE TITRATING UP ON HIS CLOZARIL UNTIL HE IS STABLE BEFORE ANY IMMINENT DC PLANS ARE MADE. PT IS CURRENTLY SITTING IN GROUP ROOM WATCHING A MOVIE WITH PEERS. HE DENIES ANY NEEDS AT THIS TIME.
[2025-03-06 20:00] VITALS: BP 121/71
[2025-03-06 20:45] VITALS: BP 125/93
[2025-03-06] MEDS ORDERED: CLOZAPINE PO SCH (21:00)
--- NOTE | 2025-03-07 05:14 | NUR ---
SHIfT SUMMARY Patient is alert and oriented times four. Speech is minimally clear, but mostly garbled and tangential. Spent evening in the milieu watching a movie and later going to snacks. He does not have difficulty making his needs known. Slept well overnight. Will continue close observation every 15 minutes for comfort and safety
[2025-03-07 08:16] VITALS: BP 126/77
--- NOTE | 2025-03-07 18:01 | NUR ---
SHIFT SUMMARY PT DENIES SI, HI, AVTH. CONTINUES TO HAVE CIRCUMSTANTIAL/TANGENTIAL THOUGHT PROCESS, BUT IS REDIRECTIBLE AND INTERMITTENTLY ASKS APPROPRIATE QUESTIONS. ALSO ABLE TO ANSWER QUESTIONS APPROPRIATELY W/ INTERMITTEN REDIRECTION. NO ACUTE EVENTS TODAY.
[2025-03-07 20:48] VITALS: BP 122/84
--- NOTE | 2025-03-08 04:24 | NUR ---
SHIFT SUMMARY: PATIENT WAS EATING DINNER IN THE DINING AREA AT THE BEGINNING OF THE SHIFT. HE THEN CAME DOWN THE POTTER AND GREETED STAFF IN A PLEASANT AND FRIENDLY MANNER. HE PARTICIPATED IN MOLDER SETTER, BUT WOULD ANSWER AND THEN GO OFF TANGENTIALLY, USUALLY IN A MUMBLING MANNER THAT MADE HIS WORDS HARD TO DISCERN. HE REMAINED SMILING AND FRIENDLY. HE DENIED SUICIDAL IDEATION, THOUGHTS OF SELF HARMING AND A/V/T HALLUCINATIONS. HE STATED, "IT WAS GOOD" ABOUT HIS DAY, NODDING AND SMILING. HE PARTICIPATED IN SNACK AND WRAP UP GROUP AT 2030, AND WAS COMPLIANT WITH EVENING MEDICATIONS. HE STAYED UP FOR A WHILE LONGER AFTER SNACK, BUT WAS IN HIS ROOM AWAKE. HE LAY DOWN ON HIS BED SHORTLY AFTER, AND WAS NOTED TO BE RESTING QUIETLY WITH EYES CLOSED AND RESPIRATIONS CONFIRMED FOR THE REMAINDER OF THE SHIFT. CONTINUING TO MONITOR FOR SAFETY WITH Q15 MINUTE CHECKS.
[2025-03-08 08:03] LABS: BASOPHILS ABSOLUTE AUTO 0.00 K/mm3 (0.00-0.23); BASOPHILS PERCENT AUTO 0 % (0-2); EOSINOPHILS ABSOLUTE AUTO 0.00 K/mm3 (0.00-0.68); EOSINOPHILS PERCENT AUTO 0 % (0-6); Hematocrit 45.3 % (37.0-53.0); Hemoglobin 15.9 g/dL (13.5-17.5); IMMATURE GRAN ABSOLUTE AUTO 0.02 K/mm3 (0.00-0.10); IMMATURE GRAN PERCENT AUTO 0 % (0-1); LYMPHOCYTES ABSOLUTE AUTO 1.63 K/mm3 (0.84-5.20); LYMPHOCYTES PERCENT AUTO 21 % (21-46); MONOCYTES ABSOLUTE AUTO 0.74 K/mm3 (0.16-1.47); MONOCYTES PERCENT AUTO 10 % (4-13); Mean Corpuscular HGB Conc 35.1 g/dL (31.5-36.5); Mean Corpuscular Volume 92 fL (80-100); NEUTROPHILS ABSOLUTE AUTO 5.32 K/mm3 (1.96-9.15); NEUTROPHILS PERCENT AUTO 69 % (41-73); NRBC ABSOLUTE 0.00 K/mm3 (0.00-0.02); NRBC Auto 0.0 /100 WBC (0.0-0.2); Platelet Count 142 K/mm3 (150-400); RDW Coefficient Variation 13.4 % (11.7-14.2); RDW Standard Deviation 45.1 fL (35.1-46.3)
[2025-03-08 08:24] LABS: Alanine Aminotransfer (ALT/SGP 27.0 U/L (12-78); Albumin, Blood 3.7 g/dL (3.4-5.0); Albumin/Globulin Ratio 1.2 (0.8-1.8); Anion Gap 6.0 mmol/L (3-11); Aspartate Aminotrans (AST/SGOT 15.0 U/L (12-37); Bilirubin, Total 1.1 mg/dL (0.1-1.0); Blood Urea Nitrogen 10.0 mg/dL (8-24); C-Reactive Protein, High Sens. 1.71 mg/L (0.000-3.000); CO2, Blood 29.0 mmol/L (21-32); Calcium, Blood 8.6 mg/dL (8.5-10.1); Chloride, Blood 108.0 mmol/L (98-108); Creatinine, Blood 0.86 mg/dL (0.60-1.20); Globulin, Blood 3.0 g/dL (2.2-4.0); Glucose, Blood 87.0 mg/dL (70-99); Potassium, Blood 4.1 mmol/L (3.5-5.5); Sodium, Blood 139.0 mmol/L (136-145); Total Protein, Blood 6.7 g/dL (6.4-8.2)
[2025-03-08 10:42] VITALS: BP 108/71
--- NOTE | 2025-03-08 11:21 | NUR ---
SHIFT ASSESSMENT: PT WAS IN THE HALLWAY AT THE BEGINNING OF SHIFT, HE DENIED SI, HI, AVH, ANXIETY AND PHYSICAL PAIN. WHEN HE WAS FIRST APPROACHED HE RESPONDED, "I'M NOT PARTICIPATING." HE DID ANSWER ALL QUESTIONS. HE REPORTED HIS MOOD , "REALLY GOOD." HIS AFFECT WAS CONGRUENT TO HIS STATED MOOD. PT IS FRIENDLY WITH PEERS AND SPEAKS A FEW COHERENT WORDS AND THEN TAPERS OFF INTO UNDISTINGUISHABLE TANGENTIAL SPEACH.
--- NOTE | 2025-03-08 18:28 | NUR ---
PT HAS BEEN PLEASANT ANC COOPERATIVE. HE HAS BEEN RESPONDING TO INTERNAL STIMULI. PT SPENT MOST OF THE DAY IN HIS ROOM, HE HAS CAME OUT FOR ALL MEALS.
[2025-03-08 19:38] VITALS: BP 126/79
--- NOTE | 2025-03-09 04:19 | NUR ---
SHIFT SUMMARY: PATIENT WAS IN THE DINING ROOM FINISHING DINNER AT THE BEGINNING OF THE SHIFT. HE THEN CAME OUT IN THE HALLWAY AND GREETED EVENING STAFF. HE STATED, "I'M FINE. I HAD A GOOD DAY." HE WAS PLEASANT AND COOPERATIVE WITH CARES. HE TENDS TO BECOME TANGENTIAL, BUT IS EASILY REDIRECTABLE. HE DENIED SUICIDAL IDEATION, THOUGHTS OF SELF HARMING AND A/V/T HALLUCINATIONS. HE STATED, "I NEVER WANT TO KILL MYSELF". HE WENT IN THE SENSORY ROOM AND THE DAY ROOM, SORT OF MAKING THE ROUNDS ON THE UNIT, IS HIS HABIT. HE ALSO SPENT SOME TIME IN HIS ROOM. HE PARTICIPATED IN SNACK AND WRAP UP GROUP IN THE DINING AREA AT 2030, AND WAS COMPLIANT WITH EVENING MEDICATIONS. HE WENT TO BED AFTER SNACK, AND WAS NOTED TO BE RESTING QUIETLY WITH EYES CLOSED AND RESPIRATIONS CONFIRMED FOR THE REMAINDER OF THE SHIFT. CONTINUING TO MONITOR FOR SAFETY WITH Q15 MINUTE CHECKS.
[2025-03-09 07:59] LABS: Hematocrit 48.0 % (37.0-53.0); Hemoglobin 16.6 g/dL (13.5-17.5); Mean Corpuscular HGB Conc 34.6 g/dL (31.5-36.5); Mean Corpuscular Volume 92 fL (80-100); NRBC ABSOLUTE 0.00 K/mm3 (0.00-0.02); NRBC Auto 0.0 /100 WBC (0.0-0.2); Platelet Count 139 K/mm3 (150-400); RDW Coefficient Variation 13.3 % (11.7-14.2); RDW Standard Deviation 44.9 fL (35.1-46.3)
[2025-03-09 08:25] LABS: BASOPHILS ABSOLUTE MAN 0.00 K/mm3 (0.00-0.23); BASOPHILS PERCENT MAN 0 % (0-2); EOSINOPHILS ABSOLUTE MAN 0.00 K/mm3 (0.00-0.68); EOSINOPHILS PERCENT MAN 0 % (0-6); LYMPHOCYTES ABSOLUTE MAN 1.40 K/mm3 (0.84-5.20); LYMPHOCYTES PERCENT MAN 28 % (21-46); MONOCYTES ABSOLUTE MAN 0.40 K/mm3 (0.16-1.47); MONOCYTES PERCENT MAN 8 % (4-13); NEUTROPHILS ABSOLUTE MAN 3.21 K/mm3 (1.96-9.15); SEG NEUTROPHILS PERCENT MAN 64 % (41-73)
[2025-03-09 10:17] VITALS: BP 104/68
--- NOTE | 2025-03-09 10:27 | NUR ---
SHIFT ASSESSMENT: PT WAS IN THE HALLWAY AT THE BEGINNING OF THE SHIFT. HE DENIED SI, HI, AVH AND ANXIETY. WHEN ASKED ABOUT PHYSICAL PAIN HE REPLIED, "I HAVE LOTS BUT NOTHING YOU NEED TO WORRY ABOUT." HE DESCRIBED HIS MOOD , "BETTER THAN EVER...I TOLD YOU!" PT ASKED ABOUT DISCHARGE PLANS AND WAS TOLD THERE WASN'T A CONCRETE PLAN YET HIS MEDS ARE STILL BEING LOOKED AT. HE KIND OF HUFFED AND LEFT THE AREA. PT IS STILL RESPONDING TO INTERNAL STIMULI.
--- NOTE | 2025-03-09 15:09 | NUR ---
PATIENTS PLATELET COUNT IS LESSENING EACH DAY SLIGHTLY. THE PROVIDER IS LOWERING THE CLOZARIL DUE TO THIS. PATIENTS [place] DOES APPEAR TO BE IMPROVING. TODAY HE ASKED JESSEE IF SHE NEEDED ANY HELP WITH ANYTHING AND THEN HE ASKED HER IF SHE WOULD MOP HIS FLOOR. JESSEE REPORTED THAT HE SPOKE SO CLEARLY TO HER AND APPEARED TO BE VERY COHERENT. PATIENT IS POLITE AND APPROPRIATE DURING INTERACTIONS.
[2025-03-09 20:04] VITALS: BP 128/85
--- NOTE | 2025-03-10 05:15 | NUR ---
SHIFT SUMMARY PATIENT UP IN MILIEU OCCASIONALLY VISITING WITH PEERS, MOSTLY SITTING OFF TO THE SIDE OF THE GROUP. VERBALIZED THAT HE IS FEELING "SO SO" TONIGHT. CONVERSATION DIFFICULT TO FOLLOW AT TIMES DUE TO VOICE GOING DOWN TO A WHISPER AT END OF SENTENCE. DENIES SI, HI, OR AVH. WHEN ASKED ABOUT HALLUCINATIONS VERBALIZED "I DON'T WANT TO TALK ABOUT IT". COOPERATIVE WITH MEDICATIONS. APPEARS TO BE SLEEPING WELL T/O NIGHT RESP EVEN AND UNLABORED. CONTINUE TO MONITOR Q15MIN
[2025-03-10 08:25] LABS: Hematocrit 44.5 % (37.0-53.0); Hemoglobin 15.4 g/dL (13.5-17.5); Mean Corpuscular HGB Conc 34.6 g/dL (31.5-36.5); Mean Corpuscular Volume 92 fL (80-100); NRBC ABSOLUTE 0.00 K/mm3 (0.00-0.02); NRBC Auto 0.0 /100 WBC (0.0-0.2); Platelet Count 135 K/mm3 (150-400); RDW Coefficient Variation 13.2 % (11.7-14.2); RDW Standard Deviation 44.6 fL (35.1-46.3)
[2025-03-10 09:28] LABS: BAND PERCENT MAN 2 % (0-8); BASOPHILS ABSOLUTE MAN 0.00 K/mm3 (0.00-0.23); BASOPHILS PERCENT MAN 0 % (0-2); EOSINOPHILS ABSOLUTE MAN 0.00 K/mm3 (0.00-0.68); EOSINOPHILS PERCENT MAN 0 % (0-6); LYMPHOCYTES ABSOLUTE MAN 1.89 K/mm3 (0.84-5.20); LYMPHOCYTES PERCENT MAN 33 % (21-46); MONOCYTES ABSOLUTE MAN 0.57 K/mm3 (0.16-1.47); MONOCYTES PERCENT MAN 10 % (4-13); NEUTROPHILS ABSOLUTE MAN 3.26 K/mm3 (1.96-9.15); SEG NEUTROPHILS PERCENT MAN 55 % (41-73)
--- NOTE | 2025-03-10 17:41 | NUR ---
SHIFT SUMMARY PT IS AA&O TO PERSON AND PLACE. HE IS PLEASANT AND COOPERATIVE WITH CARE. EYE CONTACT IS LIMITED. SPEECH IS DISORGANIZED AND NON-LINEAR. HE APPEARED TO BE HAVING A MORE DIFFICULT TIME PUTTING TOGETHER EVEN SIMPLE SENTENCES TODAY. HE HAS BEEN UP FOR MEALS AND IN THE MILIEU. HE WAS HAVING A DIFFICULT TIME ANSWERING ASSESSMENT QUESTIONS TODAY, THIS RN DID NOT PRESS. WILL CONTINUE PLAN OF CARE
[2025-03-10 19:45] VITALS: BP 121/78
--- NOTE | 2025-03-10 19:48 | NUR ---
Order from Dr. Augsut to [facility] complete. Will continue every 15 minute checks for safety.
--- NOTE | 2025-03-11 04:20 | NUR ---
Jesus has actually slept well overnight. Going to sleep around 2300. He has slept approximately 5.5 hours so far. He is alert and oriented to self and place. Still difficult to understand, mumbling every few words with very tangential speech. Up in the milieu until lights out, josette morris spent time in the TV room with his peers, then snacks before bed. will continue close observation every 15 minutes for safety and comfort.
[2025-03-11 07:53] VITALS: BP 124/100
[2025-03-11 07:59] LABS: Hematocrit 47.5 % (37.0-53.0); Hemoglobin 16.4 g/dL (13.5-17.5); Mean Corpuscular HGB Conc 34.5 g/dL (31.5-36.5); Mean Corpuscular Volume 92 fL (80-100); NRBC ABSOLUTE 0.00 K/mm3 (0.00-0.02); NRBC Auto 0.0 /100 WBC (0.0-0.2); Platelet Count 142 K/mm3 (150-400); RDW Coefficient Variation 13.2 % (11.7-14.2); RDW Standard Deviation 45.1 fL (35.1-46.3)
[2025-03-11 09:06] LABS: BAND PERCENT MAN 1 % (0-8); BASOPHILS ABSOLUTE MAN 0.00 K/mm3 (0.00-0.23); BASOPHILS PERCENT MAN 0 % (0-2); EOSINOPHILS ABSOLUTE MAN 0.00 K/mm3 (0.00-0.68); EOSINOPHILS PERCENT MAN 0 % (0-6); LYMPHOCYTES ABSOLUTE MAN 2.42 K/mm3 (0.84-5.20); LYMPHOCYTES PERCENT MAN 36 % (21-46); MONOCYTES ABSOLUTE MAN 0.26 K/mm3 (0.16-1.47); MONOCYTES PERCENT MAN 4 % (4-13); NEUTROPHILS ABSOLUTE MAN 4.04 K/mm3 (1.96-9.15); SEG NEUTROPHILS PERCENT MAN 59 % (41-73)
--- NOTE | 2025-03-11 18:18 | NUR ---
SHIFT SUMMARY PT AWAKE ALERT AND ORIENTATED TO SELF. HE IS PLEASANT AND COOPERATIVE WITH CARE. HE IS COMPLIANT WITH MEDICATIONS. EYE CONTACT IS LIMITED. SPEECH WITH FLIGHT OF IDEAS. IT IS DIFFICULT TO UNDERSTAND HIM AT TIMES, BUT HE IS ABLE TO MAKE NEEDS KNOWN EVENTUALLY. CLOZIRIL STOPPED D/T LOW PLATELETS. PLEASE SEE MD NOTES. WILL CONTINUE PLAN OF CARE
[2025-03-11 20:18] VITALS: BP 120/87
--- NOTE | 2025-03-12 05:12 | NUR ---
SHIFT SUMMARY Patient is very pleasant to staff and peers. He is alert to self only, cooperative with medications. Spent time in the milieu watching TV, then snack time before bed around 2129. Started Loxitane at HS. Will continuie close monitoring every 15 minutes for safety and comfort.
[2025-03-12 07:14] VITALS: BP 129/84
[2025-03-12 10:00] LABS: Hematocrit 46.0 % (37.0-53.0); Hemoglobin 15.9 g/dL (13.5-17.5); Mean Corpuscular HGB Conc 34.6 g/dL (31.5-36.5); Mean Corpuscular Volume 91 fL (80-100); NRBC ABSOLUTE 0.00 K/mm3 (0.00-0.02); NRBC Auto 0.0 /100 WBC (0.0-0.2); Platelet Count 151 K/mm3 (150-400); RDW Coefficient Variation 13.0 % (11.7-14.2); RDW Standard Deviation 43.1 fL (35.1-46.3)
[2025-03-12 10:25] LABS: BASOPHILS ABSOLUTE MAN 0.00 K/mm3 (0.00-0.23); BASOPHILS PERCENT MAN 0 % (0-2); EOSINOPHILS ABSOLUTE MAN 0.06 K/mm3 (0.00-0.68); EOSINOPHILS PERCENT MAN 1 % (0-6); LYMPHOCYTES ABSOLUTE MAN 1.04 K/mm3 (0.84-5.20); LYMPHOCYTES PERCENT MAN 16 % (21-46); MONOCYTES ABSOLUTE MAN 0.65 K/mm3 (0.16-1.47); MONOCYTES PERCENT MAN 10 % (4-13); NEUTROPHILS ABSOLUTE MAN 4.78 K/mm3 (1.96-9.15); SEG NEUTROPHILS PERCENT MAN 73 % (41-73)
--- NOTE | 2025-03-12 17:31 | NUR ---
SHIFT SUMMARY PT AxOx3 WITH INTERMITTENT CONFUSION AND TANGENTIAL SPEECH. HE IS PLEASANT AND COOPERATIVE WITH CARE AND EASILY REDIRECTABLE WHEN NEEDED. PT HAS BEEN FOLLOWING HIS TREATMENT PLAN INCLUDING TAKING MEDICATIONS PRESCRIBED, ATTENDING ALL MILIEU THERAPY GROUPS AND MINGLING APPROPRIATELY WITH PEERS AND STAFF. AT TIMES HE CAN COMMUNICATE LINEARLY FOR SHORT CONVERSATIONS, BUT TENDS TO GET OFF TOPIC, GOING INTO QUIET RAMBLING/MUMBLES. PT HIS HERE VOLUNTARY AT THIS POINT, BUT NO IMMINENT PLANS FOR DC HAVE BEEN MADE. MED CHANGE/INCREASE ORDERED BY THE PROVIDER TO BE STARTED TONIGHT. PT APPEARS TO BE IN GOOD SPIRITS TODAY, LAUGHING, SMILING AND TALKING WITH PEERS OFTEN. HE IS CURRENTLY SITTING IN THE SENSORY ROOM, TALKING WITH ANOTHER PATIENT. HE DENIES ANY NEEDS AT THIS TIME.
[2025-03-12 20:42] VITALS: BP 113/80
--- NOTE | 2025-03-13 05:07 | NUR ---
SHIFT SUMMARY Patient is alert and oriented times 2-3. Denies SI,HI and AVTH during evening assessment. Has taken a liking to a newly admitted female on the floor and is extremely attentive to her. Cooperative with staff and participating in group activities until HS. Will continue close monitoring every 15 minutes for safety and comfort
[2025-03-13 09:07] VITALS: BP 123/70
--- NOTE | 2025-03-13 18:02 | NUR ---
SHIFT SUMMARY PT AxOx3 WITH INTERMITTENT CONFUSION AND TANGENTIAL SPEECH. PT IS VERY PLEASANT AND COOPERATIVE WITH CARE. HE TAKES HIS MEDICATIONS PRESCRIBED, ATTENDS THE MILIEU THERAPY GROUPS AND MINGLES APPROPRIATELY WITH PEERS AND STAFF. THIS RN SPOKE WITH HIS MOTHER, SHAWNEE TODAY. SHE WAS PROVIDED AN UPDATE ON PLAN OF CARE. SHE ALSO WANTED TO MAKE SURE THE CARE TEAM WAS AWARE THAT LEWIS HAS BEEN TRIALED ON MANY, MANY MEDS IN THE LAST 10 YEARS AND HISTORICALLY, THE ONLY THING THAT HAS WORKED FOR HIM WAS CLOZARIL. SHE IS AWARE THAT LEWIS'S BLOOD COUNTS DROP WITH THE CLOZARIL, BUT HIS PREVIOUS PROVIDERS HAVE FOUND THAT HE CAN TOLERATE THE CLOZARIL IF THE DOSE INCREASE IS VERY GRADUAL. I LET HIS MOM KNOW THAT I WOULD DISCUSS THIS WITH THE PROVIDER, AND I WAS ABLE TO MAKE HIM AWARE OF THAT INFORMATION THIS AFTERNOON. PT IS CURRENTLY SITTING IN THE GROUP ROOM WATCHING TV. HE DENIES ANY NEEDS AT THIS TIME. DISCHARGE PLAN IS STILL UNKNOWN AT THIS TIME.
[2025-03-13 21:07] VITALS: BP 118/76
--- NOTE | 2025-03-13 23:22 | NUR ---
MID SHIFT SUMMARY PT PRESENT IN HALLWAY AT START OF SHIFT, INTERACTING WITH PEERS. HE IS CALM AND COOPERATIVE. HE DENIES ANY SI OR HI. HE ADMITS TO AVH AND STATES "BUT NOT IN A BAD WAY. I'M NOT USING IT." HE IS RESPONDING TO INTERNAL STIMULI, TALKING TO THE WALL DURING ASSESSMENT. HIS SPEECH IS TANGENTIAL AND MUMBLES AT TIMES. HE STAYED IN HIS ROOM FOR MOST OF THE EVENING, STATED HE WANTED TO BE ALONE. HE DECLINED SNACK. HE WAS COMPLIANT WITH MEDICATIONS. AT APPROXIMATELY 2240 PT PRESENTED TO NURSES STATION ASKING FOR WATER AND REPORTED DIFFICULTY SLEEPING. HE RECEIVED PRN MELATONIN AND WENT BACK TO HIS ROOM. Q15 MINUTE CHECKS TO CONTINUE PER PT SAFETY.
--- NOTE | 2025-03-14 04:45 | NUR ---
END OF SHIFT UPDATE NO ACUTE CHANGES. PT WAS SLEEPING UNTIL AROUND 0330, AND PRESENTED TO NURSES STATION ASKING FOR WATER. HE HAS BEEN IN AND OUT OF HIS ROOM, SPENT TIME IN SENSORY ROOM AND SITTING QUIETLY IN HALLWAY. HE DENIED ANY NEEDS. HE IS CURRENTLY BACK IN HIS ROOM RESTING IN BED. Q15 MINUTE CHECKS TO CONTINUE PER PT SAFETY.
[2025-03-14 09:19] VITALS: BP 110/69
--- NOTE | 2025-03-14 18:26 | NUR ---
SHIFT SUMMARY: PT ALERT AND COOPERATIVE WITH CARE. HE DENIES SI AND HI. STATES THAT HE DIDN'T SLEEP WELL LASTNIGHT. STATES THAT HIS MOOD IS "OK". THE CONVERSATION SWITCHES FROM ORIENTED TO TANGINTIAL AND IS DIFFICULT TO FOLLOW AT TIMES. PT WAS PRESENT ON THE UNIT AND ACTIVE IN MILIEU. SPENT TIME PACING IN THE HALLS, WATCHIN TV AND TALKING WITH PEERS AND STAFF.
[2025-03-14 20:24] VITALS: BP 109/80
--- NOTE | 2025-03-14 22:34 | NUR ---
MID SHIFT SUMMARY PT TOOK A SHOWER AT START OF SHIFT, WAS PRESENT IN [facility]. HE DENIES ANY SI OR HI. HE RESPONDS TO INTERNAL STIMULI, BUT IS PLEASANT AND COOPERATIVE. SPEECH IS TANGENTIAL AT TIMES. HE REPORTS HIS MOOD "FANTASTIC". HE CAME TO WRAP UP GROUP BUT DID NOT WANT AN EVENING SNACK. HE INTERACTS WITH PEERS. HE WAS COMPLIANT WITH MEDS AND REQEUSTED AND RECEIVED PRN MELATONIN. HE IS CURRENTLY IN HIS ROOM, AWAKE. Q15 MINUTE CHECKS TO CONTINUE PER PT SAFETY.
--- NOTE | 2025-03-15 04:19 | NUR ---
END OF SHIFT UPDATE NO ACUTE CHANGES. PT HAS REMAINED IN THE BED THROUGHOUT THE NIGHT, HE PRESENTED TO NURSES STATION AT 0410 ASKING FOR WATER AND THEN WENT BACK TO BED. Q15 MINUTE CHECKS TO CONTINUE PER PT SAFETY.
[2025-03-15 08:02] VITALS: BP 118/74
--- NOTE | 2025-03-15 16:40 | NUR ---
SHIFT SUMMARY: PT ALERT AND COOPERATIVE WITH CARE. COMPLIANT WITH MEDICATIONS. DENIES SI, HI AND AVH. WHEN ASKED HOW HIS MOOD WAS THIS MORNING HE STATED, "I'M STRESSED, IT'S FULL" AND THE CONVERSATION BECAME TANGENTIAL AND DIFFICULT TO FOLLOW. HE WAS UP FOR MEALS AND PRESENT ON THE UNIT. HE SPENT TIME RESTING IN HIS ROOM, PACING IN THE POTTER, WATCHING TV AND TALKING WITH PEERS AND STAFF.
[2025-03-15 19:20] VITALS: BP 112/72
--- NOTE | 2025-03-16 05:00 | NUR ---
SHIFT SUMMARY: PTUP IN DINING AREA AT THE BEGINNING OF THE SHIFT. WENT INTO THE GROUP ROOM WHILE STAFF PRESENT. PT THEN LEFT WHEN CERTAIN PERSON ENTERED THE ROOM. HE WENT TO HIS ROOM. CALM AND FRIENDLY MANOR. ASKED HOW HE WAS DOING. " I'M PRETTY GOOD. I JUST WANT TO FEEL DIFFERENT" PT STAYED SITTING ON BED UNTIL SNACK TIME AND GROUP WRAP UP. PT SHOWS POSITIVE PROGRESS SINCE LAST CARING FOR HIM.. HE CAN SAY FULL SENTENCES AND GIVE GOOD EYE CONTACT. PT SLEPT WELL SINCE GOING TO BED FOR THE NIGHT. PT GIVEN PRN OF MELAONIN PER REQUEST WHEN OFFERED. WILL CONTINUE TO MONITOR
[2025-03-16 07:12] LABS: Hematocrit 43.6 % (37.0-53.0); Hemoglobin 15.5 g/dL (13.5-17.5); Mean Corpuscular HGB Conc 35.6 g/dL (31.5-36.5); Mean Corpuscular Volume 89 fL (80-100); NRBC ABSOLUTE 0.00 K/mm3 (0.00-0.02); NRBC Auto 0.0 /100 WBC (0.0-0.2); Platelet Count 144 K/mm3 (150-400); RDW Coefficient Variation 13.1 % (11.7-14.2); RDW Standard Deviation 42.7 fL (35.1-46.3)
[2025-03-16 07:34] LABS: BASOPHILS ABSOLUTE MAN 0.00 K/mm3 (0.00-0.23); BASOPHILS PERCENT MAN 0 % (0-2); EOSINOPHILS ABSOLUTE MAN 0.00 K/mm3 (0.00-0.68); EOSINOPHILS PERCENT MAN 0 % (0-6); LYMPHOCYTES % ATYPICAL MANUAL 1 % (0-0); LYMPHOCYTES ABSOLUTE MAN 2.12 K/mm3 (0.84-5.20); LYMPHOCYTES PERCENT MAN 30 % (21-46); MONOCYTES ABSOLUTE MAN 0.82 K/mm3 (0.16-1.47); MONOCYTES PERCENT MAN 12 % (4-13); NEUTROPHILS ABSOLUTE MAN 3.91 K/mm3 (1.96-9.15); SEG NEUTROPHILS PERCENT MAN 57 % (41-73)
[2025-03-16 07:48] VITALS: BP 126/74
--- NOTE | 2025-03-16 08:11 | NUR ---
SHIFT ASSESSMENT: PT WAS PACING IN THE HALLWAY AT THE TIME OF THE ASSESSMENT, AT TIMES DOING RITUAL TYPE MOVEMENT WITH HIS HANDS AND A BOWING MOTION WITH HIS HEAD. HE DENIED SI, HI, AVH, ANXIETY AND PHYSICAL PAIN. HE ANSWERED THE QUESTIONS AND SEEMED A BIT IRRITABLE AND SAID, "I REALLY DON'T WANT TO TALK RIGHT NOW." PT CONTINUED TO WALK THE POTTER FOR A FEW MINUTES BEFORE GOING TO HIS ROOM.
--- NOTE | 2025-03-16 18:00 | NUR ---
PT HAS ATTENDED GROUPS AND HAS BEEN IN THE TV ROOM SEVERAL TIMES TODAY AND HAS USED THE HEAD PHONES. HE HAS BEEN COOPERATIVE WITH CARE AND HAS APPEARED TO BE IN BETTER HUMOR THIS AFTERNOON.
--- NOTE | 2025-03-17 05:39 | NUR ---
SHIFT SUMMARY Pt is A&O to self and place. Calm, cooperative, eye contact is appropriate. Pt s stated mood is really good, affect is blunted. Pt denies SI, HI, and all hallucinations. Pt denies pain or other medical issues. Pt is circumstantial and tangential. Pt was active on the milieu during the evening, watching TV with peers. Staff continues to monitor q15m for safety and wellness.
[2025-03-17 07:31] LABS: Hematocrit 41.0 % (37.0-53.0); Hemoglobin 14.6 g/dL (13.5-17.5); Mean Corpuscular HGB Conc 35.6 g/dL (31.5-36.5); Mean Corpuscular Volume 90 fL (80-100); NRBC ABSOLUTE 0.00 K/mm3 (0.00-0.02); NRBC Auto 0.0 /100 WBC (0.0-0.2); Platelet Count 154 K/mm3 (150-400); RDW Coefficient Variation 13.2 % (11.7-14.2); RDW Standard Deviation 43.2 fL (35.1-46.3)
[2025-03-17 08:02] LABS: BASOPHILS ABSOLUTE MAN 0.00 K/mm3 (0.00-0.23); BASOPHILS PERCENT MAN 0 % (0-2); EOSINOPHILS ABSOLUTE MAN 0.00 K/mm3 (0.00-0.68); EOSINOPHILS PERCENT MAN 0 % (0-6); LYMPHOCYTES ABSOLUTE MAN 2.22 K/mm3 (0.84-5.20); LYMPHOCYTES PERCENT MAN 35 % (21-46); MONOCYTES ABSOLUTE MAN 0.69 K/mm3 (0.16-1.47); MONOCYTES PERCENT MAN 11 % (4-13); NEUTROPHILS ABSOLUTE MAN 3.42 K/mm3 (1.96-9.15); SEG NEUTROPHILS PERCENT MAN 54 % (41-73)
[2025-03-17 08:08] VITALS: BP 118/80
--- NOTE | 2025-03-17 14:53 | NUR ---
TRANSFER OF CARE PT DENIES SI, HI, ATH. APPEARS TO ENDORSE VISUAL HALLUCINATIONS, "MY MIRROR IS ALIVE" "MY SHADOW JUMPS". ANSWERS QUESTIONS APPROPRIATELY W/ INTERMITTENT REDIRECTION. PT ALSO IS TANGENTIAL/CIRCUMSTANTIAL AT TIMES. APPEARS TO RESPOND TO INTERNAL STIMULI. NO ACUTE EVENTS TODAY.
[2025-03-17 19:42] VITALS: BP 124/81
--- NOTE | 2025-03-17 23:49 | NUR ---
SHIFT SUMMARY Pt is A&O to self and place. Calm, cooperative, eye contact is appropriate. Pt s stated mood is pretty good, affect is blunted. Pt denies SI, HI, and AH. Pt endorsed VH of flashes. Pt denies pain or other medical issues. Pt is circumstantial and tangential. Staff continues to monitor q15m for safety and wellness.
--- NOTE | 2025-03-18 05:09 | NUR ---
SHIFT SUMMARY: ASSUMED CARE OF PT AT 0000. PT HAS BEEN SLEEPING WITH OUT INTERUPTION. WILL CONTINUE TO M ONITOR Q 15 MIN FOR SAFETY AND WELLNESS.
[2025-03-18 07:36] VITALS: BP 128/85
--- NOTE | 2025-03-18 17:30 | NUR ---
SHIFT SUMMARY NO ACUTE EVENTS TODAY. PT DENIES SI, HI, VTH. ENDORSES AUDITORY HALLUCINATIONS. PT ANSWERS APPROPRIATLY W/ REDIRECTION, BUT CONTINUES TO BE TANGENTIAL AND CIRCUMSTANTIAL. WHEN ASKED ABOUT VISUAL HALLUCINATIONS PT STATED, "HOW WOULD I KNOW IF IT'S REAL OR A HALLUCINATION". PLEASANT AND COOPERATIVE.
[2025-03-18 19:19] VITALS: BP 120/76
--- NOTE | 2025-03-19 06:16 | NUR ---
SHIFT SUMMARY Pt is A&O to self and place. Calm, cooperative, eye contact is appropriate. Pt s stated mood is "chill," affect is blunted. Pt denies SI, HI, and VH. Pt endorsed AH, but did not elaborate. Pt denies pain or other medical issues. Pt is circumstantial and tangential. Staff continues to monitor q15m for safety and wellness.
[2025-03-19 07:38] LABS: Hematocrit 44.4 % (37.0-53.0); Hemoglobin 15.5 g/dL (13.5-17.5); Mean Corpuscular HGB Conc 34.9 g/dL (31.5-36.5); Mean Corpuscular Volume 90 fL (80-100); NRBC ABSOLUTE 0.00 K/mm3 (0.00-0.02); NRBC Auto 0.0 /100 WBC (0.0-0.2); Platelet Count 154 K/mm3 (150-400); RDW Coefficient Variation 13.4 % (11.7-14.2); RDW Standard Deviation 44.4 fL (35.1-46.3)
[2025-03-19 07:56] LABS: BASOPHILS ABSOLUTE MAN 0.00 K/mm3 (0.00-0.23); BASOPHILS PERCENT MAN 0 % (0-2); EOSINOPHILS ABSOLUTE MAN 0.00 K/mm3 (0.00-0.68); EOSINOPHILS PERCENT MAN 0 % (0-6)
[2025-03-19 07:57] LABS: LYMPHOCYTES ABSOLUTE MAN 1.64 K/mm3 (0.84-5.20); LYMPHOCYTES PERCENT MAN 27 % (21-46); MONOCYTES ABSOLUTE MAN 1.03 K/mm3 (0.16-1.47); MONOCYTES PERCENT MAN 17 % (4-13); NEUTROPHILS ABSOLUTE MAN 3.41 K/mm3 (1.96-9.15); SEG NEUTROPHILS PERCENT MAN 56 % (41-73)
[2025-03-19 08:53] VITALS: BP 124/74
--- NOTE | 2025-03-19 17:19 | NUR ---
SHIFT SUMMARY PT CALM AND COOPERATIVE THIS SHIFT. HE DENIES SI/HI AND DOES ENDORSE AH. HE STATES HE IS HEARING CARTOON CHARACTERS. PT IS COMPLIANT WITH ALL MEDICATIONS AND INTERACTS WELL WITH PEER. HE CONTINUES TO BE TANGENTIAL AND SPEECH IS LOW VOLUME AND MUMBLING. PT WAS NOT GIVEN ANY PRN MEDICATIONS THIS SHIFT. ALL SAFETY CHECKS COMPLETED. HE PARTIALLY PARTICIPATED IN GROUPS.
[2025-03-19 18:58] VITALS: BP 119/77
--- NOTE | 2025-03-20 06:03 | NUR ---
SHIFT SUMMARY Pt is A&O to self and place. Calm, cooperative, eye contact is appropriate. Pt s stated mood is "okay," but presents as depressed; affect is blunted. Pt denies SI, HI, and VH. Pt endorsed AH, but did not elaborate. Pt denies pain or other medical issues. Pt remains circumstantial and tangential with conversation drifting off to babbling. Staff continues to monitor q15m for safety and wellness.
[2025-03-20 08:58] VITALS: BP 120/80
--- NOTE | 2025-03-20 18:24 | NUR ---
SHIFT SUMMARY PT AA&O TO PERSON, PLACE AND SITUATION. HE IS PLEASANT AND COOPERATIVE WITH CARE. SPEECH IS DISORGANIZED AND EYE CONTACT IS LIMITED. HE IS ABLE TO ANSWER QUESTIONS WIH SHORT ANSWERS THEN QUICKLY GOES OFF TOPIC AND IS SOMEWHAT NONSENSICAL. HE IS COMPLIANT WITH MEDS. CLOZARIL INCREASED 12.5 MG TODAY. HE IS TOLERATING WELL. WILL CONTINUE POC
[2025-03-20 21:07] VITALS: BP 110/91
--- NOTE | 2025-03-21 04:14 | NUR ---
SHIFT SUMMARY PT PRESENT IN MILIEU AT START OF SHIFT. HE IS CALM AND COOPERATIVE WITH CARE. CONTINUES TO HAVE TANGENTIAL THOUGHT PROCESS. HE REPORTS AUDITORY HALLUCINATIONS AND RESPONDS TO INTERNAL STIMULI. HE WAS COMPLIANT WITH EVENING MEDICATION, HAD EVENING SNACK AND WENT TO BED SHORTLY AFTER SNACK. Q15 MINUTE CHECKS TO CONTINUE PER PT SAFETY.
[2025-03-21 07:35] VITALS: BP 118/82
[2025-03-21 08:06] LABS: Hematocrit 45.7 % (37.0-53.0); Hemoglobin 16.0 g/dL (13.5-17.5); Mean Corpuscular HGB Conc 35.0 g/dL (31.5-36.5); Mean Corpuscular Volume 90 fL (80-100); NRBC ABSOLUTE 0.00 K/mm3 (0.00-0.02); NRBC Auto 0.0 /100 WBC (0.0-0.2); Platelet Count 161 K/mm3 (150-400); RDW Coefficient Variation 13.4 % (11.7-14.2); RDW Standard Deviation 44.2 fL (35.1-46.3)
[2025-03-21 08:25] LABS: BASOPHILS ABSOLUTE MAN 0.00 K/mm3 (0.00-0.23); BASOPHILS PERCENT MAN 0 % (0-2); EOSINOPHILS ABSOLUTE MAN 0.00 K/mm3 (0.00-0.68); EOSINOPHILS PERCENT MAN 0 % (0-6); LYMPHOCYTES ABSOLUTE MAN 1.28 K/mm3 (0.84-5.20); LYMPHOCYTES PERCENT MAN 21 % (21-46); MONOCYTES ABSOLUTE MAN 0.98 K/mm3 (0.16-1.47); MONOCYTES PERCENT MAN 16 % (4-13); NEUTROPHILS ABSOLUTE MAN 3.86 K/mm3 (1.96-9.15); SEG NEUTROPHILS PERCENT MAN 63 % (41-73)
--- NOTE | 2025-03-21 17:37 | NUR ---
SHIFT SUMMARY PT HAS BEEN UP AND ENGAGED IN THE UNIT MOST ALL OF SHIFT. OCCASIONALLY HANGING IN THE SENSORY ROOM. HE HAS BEEN ENGAGED IN MEALS/SNACKS AND GROUPS TODAY. HE DOES ENDORSE AUDITORY HALLUCINATIONS HOWEVER DENIES SI/HI. DIFFICULT TO COMMUNICATE WITH PT. COMPLIANT WITH MEDICATION. HE HAS RECEIVED Q15 MIN VISUAL SAFETY CHECKS THROUGHOUT THE SHIFT.
[2025-03-21 20:39] VITALS: BP 112/74
--- NOTE | 2025-03-22 04:14 | NUR ---
SHIFT SUMMARY PT IS PRESENT IN THE HALLWAY AT START OF SHIFT. HE DENIES ANY SI OR HI BUT REPORTS AUDITORY HALLUCINATIONS AND RESPONDS TO INTERNAL STIMULI. PT SEEMS A LITTLE MORE WITHDRAWN THAN PREVIOUS SHIFT. HE IS NOT ENGAGING VERY MUCH WITH PEERS. HE HAD EVENING SNACK AND WAS COMPLIANT WITH MEDS. HE C/O AN UPSET STOMACH AND REQUESTED AND RECEIVED TUMS WITH GOOD AFFECT. HE WAS IN AND OUT OF HIS ROOM AT BED TIME. MELATONIN WAS OFFERED TO ASSIST WITH SLEEPING, BUT PT DECLINED. HE HAS REMAINED IN THE SENSORY ROOM THROUGHOUT THE NIGHT, SITTING QUIETLY AND OR SLEEPING. Q15 MINUTE CHECKS TO CONTINUE PER PT SAFETY.
[2025-03-22 07:45] VITALS: BP 117/85
[2025-03-22 20:19] VITALS: BP 120/80
--- NOTE | 2025-03-23 00:22 | NUR ---
MID SHIFT SUMMARY PT IN HIS ROOM AT START OF SHIFT. RESPONDS TO INTERNAL STIMULI AND REPORTS AUDITORY HALLUCINATIONS. PT IS DIFFICULT TO UNDERSTAND AT TIMES, SPEECH IS TANGENTIAL AND PT SPEAKS SOFTLY. HE WAS COMPLIANT WITH MEDICATIONS. HE WAS PLEASANT AND COOPERATIVE. HE DECLINED EVENING SNACK. HE WENT BACK AND FORTH BETWEEN THE SENSORY ROOM AND HIS ROOM IN THE EVENING. HE DECLINED NEEDING ANY MELATONIN. HE IS CURRENTLY IN THE SENSORY ROOM RESTING QUIETLY. Q15 MINUTE CHECKS TO CONTINUE PER PT SAFETY.
--- NOTE | 2025-03-23 05:11 | NUR ---
END OF SHIFT UPDATE PT AWAKE AND IN AND OUT OF HIS ROOM, WALKING IN THE HALLWAY AROUND 0430. DENIES ANY NEEDS AT THIS TIME. HE IS CURRENTLY RESTING QUIETLY IN HIS ROOM. Q15 MINUTE CHECKS TO CONTINUE PER PT SAFETY.
[2025-03-23 07:49] LABS: Hematocrit 42.7 % (37.0-53.0); Hemoglobin 14.9 g/dL (13.5-17.5); Mean Corpuscular HGB Conc 34.9 g/dL (31.5-36.5); Mean Corpuscular Volume 91 fL (80-100); NRBC ABSOLUTE 0.00 K/mm3 (0.00-0.02); NRBC Auto 0.0 /100 WBC (0.0-0.2); Platelet Count 144 K/mm3 (150-400); RDW Coefficient Variation 13.4 % (11.7-14.2); RDW Standard Deviation 44.5 fL (35.1-46.3)
[2025-03-23 08:13] LABS: BASOPHILS ABSOLUTE MAN 0.00 K/mm3 (0.00-0.23); BASOPHILS PERCENT MAN 0 % (0-2); EOSINOPHILS ABSOLUTE MAN 0.00 K/mm3 (0.00-0.68); EOSINOPHILS PERCENT MAN 0 % (0-6); LYMPHOCYTES ABSOLUTE MAN 1.38 K/mm3 (0.84-5.20); LYMPHOCYTES PERCENT MAN 24 % (21-46); MONOCYTES ABSOLUTE MAN 0.63 K/mm3 (0.16-1.47); MONOCYTES PERCENT MAN 11 % (4-13); NEUTROPHILS ABSOLUTE MAN 3.74 K/mm3 (1.96-9.15); SEG NEUTROPHILS PERCENT MAN 65 % (41-73)
--- NOTE | 2025-03-23 08:18 | NUR ---
Patient is awake and walking the unit, frequenting the sensory room. He states that he does have SI, about suffocation. He says "the perks of suffocation is that it comes up and down from the top". He says suffocationg part of me". He states his mood is "want to gentile myself, it makes me happy to think about it (as he holds his arms in front of his chest like he is driving a dagger through his chest). Then he says "Back to suffocating". He states he is scared of the lighting on the unit and everything. I asked if he was having any SE from his medication and he states "yeah, a crash feeling". I asked him what he means by that and he states "Kinetic idea between the realities to be. Its like port lions, square, and smaller chromosome". When he was asked if he hears anything that isn't there he states "hearing helpful divisions- other kids with helpful talents they don't want to open up everyday'. Anxliety was assessed and he states he "has a little anxiety and he likes it". Then, he asked this advertising copy writer a question: He asks "Would you drop or stay where you are at if the future came up"? The patient is currently walking the hallway on the unit. Affect is happy and anxious.
[2025-03-23 09:01] VITALS: BP 122/80
--- NOTE | 2025-03-23 17:35 | NUR ---
Since prior note from this am, there has not been any significant events. The patient does vacillate between wanting to stay for mh treatment and wanting to be discharged. The patients thinking appears to be very disorganized with magical thinking patterns. Speech can be hard to understand at times. The patient is currently pacing the unit hallway. Please see nursing note from this morning as well.
[2025-03-23 20:08] VITALS: BP 128/90
--- NOTE | 2025-03-24 05:11 | NUR ---
SHIFT SUMMARY PATIENT UP IN MILIEU. VERBALIZED HE IS FEELING "BETTER" TONIGHT. DENIES SI, HI, OR AVH. CONVERSATION DIFFICULT TO FOLLOW AT TIMES, WITH ENDING HIS SENTENCES WITH A WHISPER. COOPERATIVE WITH HS MEDICATION. SLEEP RESTLESS AND UP OUT OF ROOM EARLY THIS MORNING REQUESTING TO TAKE A SHOWER AT 0200, WHEN REMINDED THAT OTHERS AROUND HIM ARE TRYING TO SLEEP PATIENT RETURNED TO HIS ROOM. CONTINUES TO BE UP AND DOWN THE REST OF THE NIGHT. CONTINUE TO MONITOR Q15MIN
[2025-03-24 07:41] LABS: Hematocrit 43.9 % (37.0-53.0); Hemoglobin 15.2 g/dL (13.5-17.5); Mean Corpuscular HGB Conc 34.6 g/dL (31.5-36.5); Mean Corpuscular Volume 91 fL (80-100); NRBC ABSOLUTE 0.00 K/mm3 (0.00-0.02); NRBC Auto 0.0 /100 WBC (0.0-0.2); Platelet Count 146 K/mm3 (150-400); RDW Coefficient Variation 13.3 % (11.7-14.2); RDW Standard Deviation 44.2 fL (35.1-46.3)
[2025-03-24 07:51] VITALS: BP 118/72
[2025-03-24 08:24] LABS: BASOPHILS ABSOLUTE MAN 0.00 K/mm3 (0.00-0.23); BASOPHILS PERCENT MAN 0 % (0-2); EOSINOPHILS ABSOLUTE MAN 0.00 K/mm3 (0.00-0.68); EOSINOPHILS PERCENT MAN 0 % (0-6); LYMPHOCYTES ABSOLUTE MAN 1.14 K/mm3 (0.84-5.20); LYMPHOCYTES PERCENT MAN 17 % (21-46); MONOCYTES ABSOLUTE MAN 0.67 K/mm3 (0.16-1.47); MONOCYTES PERCENT MAN 10 % (4-13); NEUTROPHILS ABSOLUTE MAN 4.89 K/mm3 (1.96-9.15); SEG NEUTROPHILS PERCENT MAN 73 % (41-73)
--- NOTE | 2025-03-24 16:23 | NUR ---
SUMMARY- ASSUMED CARE OF THIS PATIENT AT 1330. PATIENT DENIES SI, BUT STATES "IF I COULD BE NOTHING, I WOULD CHOOSE THAT'. BENNY DENIES HALLUCINATION, HOWEVER HE IS HEARD TALKING WITH SOMEONE UNSEEN AND APPEARS TO BE RESPONDING TO INTERNAL STIM. PATIENT IS PLEASANT WITH STAFF, SMILING AND HAVING TANGENTIAL CONVERSATION. PATIENT USES THE SENSORY ROOM AND HEADPHONES FREQUENTLY, AND IS PRESENT ON THE UNIT WITH PEERS AND STAFF.
[2025-03-24 20:57] VITALS: BP 113/66
--- NOTE | 2025-03-25 04:04 | NUR ---
SHIFT SUMMARY Patient appeared depressed last evening. Decreased eye contact during conversation. He again expressed his desire not to have a roommate, and it was explained that there was no other option at this time. During evening assessment, he denied SI,HI and AVH. At 0400, Jesus came out of his room, mumbled something about what sounded like pain. This RN offered to get something for his pain, and he just waved his arms and walked to the end of the jaramillo and sat down where he stayed for approximately 30 minutes before going back to his room. Will continue close monitoring every 15 minutes for safety
[2025-03-25 07:32] VITALS: BP 144/89
[2025-03-25 07:56] LABS: Hematocrit 44.1 % (37.0-53.0); Hemoglobin 15.6 g/dL (13.5-17.5); Mean Corpuscular HGB Conc 35.4 g/dL (31.5-36.5); Mean Corpuscular Volume 90 fL (80-100); NRBC ABSOLUTE 0.00 K/mm3 (0.00-0.02); NRBC Auto 0.0 /100 WBC (0.0-0.2); Platelet Count 155 K/mm3 (150-400); RDW Coefficient Variation 13.3 % (11.7-14.2); RDW Standard Deviation 43.9 fL (35.1-46.3)
[2025-03-25 08:19] LABS: BASOPHILS ABSOLUTE MAN 0.00 K/mm3 (0.00-0.23); BASOPHILS PERCENT MAN 0 % (0-2); EOSINOPHILS ABSOLUTE MAN 0.00 K/mm3 (0.00-0.68); EOSINOPHILS PERCENT MAN 0 % (0-6); LYMPHOCYTES ABSOLUTE MAN 1.43 K/mm3 (0.84-5.20); LYMPHOCYTES PERCENT MAN 21 % (21-46); MONOCYTES ABSOLUTE MAN 0.40 K/mm3 (0.16-1.47); MONOCYTES PERCENT MAN 6 % (4-13); NEUTROPHILS ABSOLUTE MAN 4.98 K/mm3 (1.96-9.15); SEG NEUTROPHILS PERCENT MAN 73 % (41-73)
--- NOTE | 2025-03-25 16:25 | NUR ---
SHIFT SUMMARY PT AxOx2-3 WITH INTERMITTENT CONFUSION/DELUSIONAL THINKING. PT IS PLEASANT AND COOPERATIVE WITH CARE AND EASILY REDIRECTABLE WHEN NEEDED. PT DENIES SI/HI THIS SHIFT. HE DID ENDORSE AUDIO HALLUCINATIONS, BUT WAS UNABLE TO DESCRIBE THEM WITHOUT BECOMING TANGENTIAL AND DISORGANIZED. WHEN ENGAGING IN CONVERSATIONS, HIS THOUGHTS TEND TO START OFF LINEAR, BUT QUICKLY TURN INTO UNINTELLIGIBLE, RAMBLES AND MUMBLES. THIS RN SPOKE WITH THE PATIENT'S MOTHER (SHAWNEE) VIA PHONE THIS SHIFT. SHAWNEE WANTED ME TO PASS ON INFO REGARDING LEWIS'S HISTORY. SHAWNEE STATES THAT SHE HAS BEEN CARING FOR LEWIS AND HIS MENTAL HEALTH FOR ABOUT 10 YEARS. SHE STATES THAT IN ALL THE YEARS, THE ONLY THING THAT WORKED WELL FOR LEWIS WAS CLOZARIL. SHE IS ALSO AWARE THAT IT DROPS HIS PLATELETS AND MENTIONED THAT IN THE PAST HE HAS TOLERATED IT WITH A VERY SLOW TITRATION AND THAT LAST TIME IT TOOK HIM 3 MONTHS TO GET TO A THERAPEUTIC LEVEL OF CLOZARIL. THE PROVIDER THAT WAS ABLE TO HELP HIM AT THAT TIME WAS DR CUBA AT [facility] IN [place]. THE PATIENT HAD AN OTHERWISE UNEVENTFUL DAY. HE FOLLOWS HIS TREATMENT PLAN INCLUDING TAKING MEDICATIONS PRESCRIBED, ATTENDING MILIEU THERAPY GROUPS AND MINGLING APPROPRIATELY WITH PEERS/STAFF. PT IS CURRENTLY SITTING IN HIS ROOM, APPEARS CALM. HE DENIES ANY NEEDS AT THIS TIME.
[2025-03-25 20:58] VITALS: BP 122/79
--- NOTE | 2025-03-26 04:19 | NUR ---
Patient is alert and oriented times 2-3. Very soft spoken and tangential in his speech. Still has a great deal of anxiety over having someone sleeping in his room. He got up around 2300 and tried to sneak into the sensory room, but was guided out and back to his room. Moments later, he was sitting on the floor at the end of the jaramillo. He did finally allow this nurse to give him a melatonin, and he slept for a few hours after midnight. Denies SI,HI AVH at time of evening assessment. Will continue close observation every 15 minutes for safety and comfort
[2025-03-26 07:59] VITALS: BP 128/83
--- NOTE | 2025-03-26 17:58 | NUR ---
SHIFT SUMMARY PT AA&O TO PERSON AND PLACE. HE IS PLEASANT AND COOPERATIVE WITH CARE. SPEECH IS DISORGANIZED EYE CONTACT IS LIMITED. INSIGHT IS POOR. HE IS UNABLE TO ARTICULATE WHY HE IS HERE. IT IS HARD TO FOLLOW WHAT HE IS TRYING TO SAY. HE REPORTS THAT HE DOES NOT NEED MEDICATION WHEN ATTEMPTING TO EDUCATE. HE DOES NOT APPEAR TO UNDERSTAND DIAGNOSIS. HE DID GET UP FOR SHOWER, GROUPS AND MEALS. HE DENIES SI. HE ENDORSES AH. WILL CONTINUE PLAN OF CARE
[2025-03-26 21:15] VITALS: BP 128/88
--- NOTE | 2025-03-27 04:11 | NUR ---
Patient continues to separate from his peers and walk the halls or sit in his room by himself. Alert and oriented times two. He was OOB around 0200 wandering up and down the halls or sitting at the end of the jaramillo. At , he was given melatonin with his clozaril which may have given him a small amount (3-4 hours) of sleep before he woke up. No complaints of pain or discomfort keeping him up. In his words, he just doesn't like having a roommate. Will continue close monitoring every 15 minutes for safety and comfort.
[2025-03-27 09:02] VITALS: BP 112/75
--- NOTE | 2025-03-27 17:50 | NUR ---
Summary- Patient appears to be sad this shift- intermittently. He does express that he needs some extra 'time' to sit with and talk to staff. He denies SI, HI and hallucination. He did shower this am, and attempts to participate in morning community meeting. Patient is asking about when he will be ready for discharge. Changes in medications were addressed due to PLT count, and he nods in understanding. Patient does enjoy having conversations but is still starting off focused and then trailing into nonsensicle speech. The patient has been safe all shift, not engaging in any harmful behavior.
[2025-03-27 19:40] VITALS: BP 106/68
--- NOTE | 2025-03-28 04:08 | NUR ---
SHIFT SUMMARY PATIENT IS ALERT AND ORINTED TIMES TWO TO THREE. VERY SOFT SPOKEN TANGENTIAL SPEECH. SPENT THE NIGHT IN HIS ROOM TONIGHT FROM 2100 UNTIL THE PRESENT. STATES HE THINKS HE CAN SLEEP NOW THAT HE IS ALONE IN HIS ROOM. DENIED SI,HI AND VISUAL HALLUCINATIONS. WHEN ASKED ABOUT AUDIO HALLUCINATIONS, HE STATED "SOMETIMES". wILL CONTINUE CLOSE MONITORING EVERY 15 MINUTES FOR SAFETY AND COMFORT.
[2025-03-28 07:01] VITALS: BP 131/75
--- NOTE | 2025-03-28 16:25 | NUR ---
SUMMARY- PATIENT DENIES HAVING THOUGHTS OF WANTING TO KILL HIMSELF. HE STATES THAT HE IS NOT HEARING VOICES, HOWEVER HE IS RESPONDING TO INTERNAL STIMULI. PATIENT REPORTS THAT HE IS JOURNALING- DRAWING DOTS AND THEN CONNECTING THEM SO THAT THEY DISSOLVE INTO NOTHINGNESS. PATIENT SMILES DURING CONVERSATION AND STILL STATES THAT HE WANTS TO GO HOME. SOME STATEMENTS ARE HARD FOR THIS RN TO UNDERSTAND THEY ARE TENGENTIAL. APPEARANCE IS DISHEVELED. PATIENT IS REQUESTING A SHAVE, AND RN IS ASSISTING HIM WITH DOING SO. PATIENT HAS BEEN AROUND PEERS, BUT SOLITARY IN HIS ACTIONS, NOT REALLY INTERACTING WITH THEM. PATIENT DENIES PAIN AND HAD NO MEDICAL COMPLAINTS THIS SHIFT.
[2025-03-28 23:42] VITALS: BP 127/72
--- NOTE | 2025-03-29 04:13 | NUR ---
SHIFT SUMMARY PT SITTING QUIETLY ON HIS BED AT THE START OF SHIFT. HE REPORTS HIS MOOD "ACTUALLY GOOD". HE STATES THAT HE REALLY WANTS TO SEE HIS FAMILY AND WOULD LIKE TO LOOK AT HIS "STUFF". REMINDED PT THAT WE CAN NOT HAVE PERSONAL BELONGINGS ON THE UNIT, BUT HE WOULD GET THEM WHEN DISCHARGED. PT DENIES ANY SI/HI OR AVTH, ALTHOUGH HE DOES RESPOND TO INTERNAL STIMULI. SPEECH IS TANGENTIAL AT TIMES, BUT APPEARS TO BE IMPROVING. HIS MOM CALLED AND HE WAS EXCITED TO SPEAK WITH HER. HE HAD EVENING SNACK, WAS COMPLIANT WITH MEDICATIONS AND WENT TO BED. HE HAS REMAINED IN BED THROUGHOUT THE NIGHT. Q15 MINUTE CHECKS TO CONTINUE PER PT SAFETY.
[2025-03-29 09:28] VITALS: BP 124/64
--- NOTE | 2025-03-29 17:39 | NUR ---
SHIFT SUMMARY PT AA&O TO PERSON, PLACE AND SITUATION. HE IS PLEASANT AND MEDICATION COMPLIANT. SPEECH IS DISORGANIZED. HE IS UNABLE TO ARTICULATE COMPLETE THOUGHTS. HE IS UNABLE TO STAY ON ONE TOPIC. HE IS ABLE TO ANSWER QUESTIONS WITH SHORT ANSWERS. HE NEEDS REDIRECTED TO STAY ON TASK. HE DENIES SI. ENDORSED AH. HE HAS BEED UP FOR GROUPS AND MEALS. WILL CONTINUE POC
[2025-03-29 19:54] VITALS: BP 128/70
--- NOTE | 2025-03-30 04:18 | NUR ---
SHIFT SUMMARY: PATIENT WAS IN HIS ROOM SITTING ON HIS BED AT THE BEGINNING OF THE SHIFT. HE CLOSED HIS EYES AND LAY ON THE BED WHEN APPROACHED BY RN. HE GAVE ONE AND TWO WORD ANSWERS TO SURFACE GRINDING MACHINE HAND QUESTIONS, STATING, "I'M TIRED". HE STATED THAT HE HAD A "GOOD DAY" AND DENIED SUICIDAL IDEATION, THOUGHTS OF SELF HARMING AND A/V/T HALLUCINATIONS, ALTHOUGH HE SEEMED TO BE RESPONDING TO UNSEEN OTHERS AT TIMES, EVIDENCED BY NODDING TOWARD THE WALL AND LAUGHING SOFTLY. HE REMAINED IN HIS BED UNTIL SNACK TIME, THEN DID GET UP TO PARTICIPATE IN SNACK AND WRAP UP GROUP. HE WAS COMPLIANT WITH EVENING MEDICATIONS, AND DID NOT REQUEST ANY PRNS. HE WENT BACK TO HIS ROOM AFTER SNACK, AND REMAINED SITTING UP IN BED FOR A TIME. HE APPEARED TO FALL ASLEEP IN THAT POSITION, BUT EVENTUALLY WAS LYING DOWN AND RESTING WITH EYES CLOSED AND RESPIRATIONS CONFIRMED. CONTINUING TO MONITOR FOR SAFETY WITH Q15 MINUTE CHECKS.
[2025-03-30 08:29] VITALS: BP 126/70
--- NOTE | 2025-03-30 17:44 | NUR ---
SHIFT SUMMARY. PT IS AA&O TO PERSON AND PLACE. SPEECH IS LIMITED AND DISORGANIZED. EYE CONTACT IS LIMITED. PT RESPONDING LOUDLY TO INTERNAL STIMULI TWICE TODAY IN HIS ROOM TO THE POINT OF YELLING. IT IS NOT AGGRESIVE. HE STATES HE IS FINE HE HAS BEEN ISOLATING IN HIS ROOM MORE FREQUENTLY. HE IS UNABLE TO ANSWER BASIC QUESTIONS. HE IS INTERACTING LESS WITH STAFF AND PEERS. PT ENCOURAGED TO PARTICIPATE. NOTIFIED. ORDERS RECIEVED TO DC ZYPREXA AND ORDER RISPERIDOL 1MG ONE TIME DOSE.DR. ALANIZ WILL REEVALUATE IN THE AM
[2025-03-30 19:49] VITALS: BP 103/77
--- NOTE | 2025-03-31 05:45 | NUR ---
SHIFT SUMMARY Pt is A&O to self and place. Calm, cooperative, eye contact is appropriate. Pt's stated mood is "I want to go home," presents as depressed, affect is blunted. Pt denies SI, HI, and AG. Pt endorsed VH of flashes. Pt denies pain or other medical issues. Pt remains circumstantial and tangential with conversation, displaying loose associations when answering questions. He tended to isolate to his room during the evening. Staff continues to monitor q15m for safety and wellness.
[2025-03-31 09:04] VITALS: BP 124/78
--- NOTE | 2025-03-31 15:16 | NUR ---
In the morning patient described his mood as happy and hopeful on the group sheet. He denies any SI, AH or VH but states that he does get 'invasions'. I asked him if the invasions are thoughts and he states "yes". He denied flashes of light in his eye when he was asked specifically about that. The provider reviewed the chart and ordered a CBC with diff for Wednesday04/01/25, and then the plan is to increase Clozaril by 12.5 Wednesday04/04/25. We changed Risperidone 1 mg, to BID, and gave a NOW dose at 1259 to start the BID today, rather than wait until tomorrow. Around 1500 I reassessed the patient for symptoms. He is not having si, denies hallucination. He looks out the window and sees the sunshine and gets sad that it is no longer cloudy. He states "The sun is so sacred", He feels that is where the squares and triangles come from. I asked if he notices any side effects from the medication and he lists "lost hope, regret". Patients thought content appears scattered and loose with tangetial conversation. Affect is flat, and sad. Patient is feeling more sad at this time, but is interacting with staff as usual. He comes in and out of his room frequently. Patient has displayed safe behaviors this shift and states that he desires to go home soon.
[2025-03-31 19:16] VITALS: BP 124/69
--- NOTE | 2025-04-01 06:24 | NUR ---
SHIFT SUMMARY Pt is A&O to self and place. Calm, cooperative, eye contact is appropriate. Pt s stated mood is good, but presents as depressed; affect is sad. Pt denies SI, HI, and AH. Pt endorsed VH, stating that he saw my brother s dog. Pt denies pain or other medical issues. Pt remains circumstantial and tangential with conversation, displaying loose associations when answering questions. He tended to isolate to his room during the evening. No PRNs requested. Staff continues to monitor q15m for safety and wellness.
[2025-04-01 07:29] LABS: BASOPHILS ABSOLUTE AUTO 0.00 K/mm3 (0.00-0.23); BASOPHILS PERCENT AUTO 0 % (0-2); EOSINOPHILS ABSOLUTE AUTO 0.00 K/mm3 (0.00-0.68); EOSINOPHILS PERCENT AUTO 0 % (0-6); Hematocrit 43.2 % (37.0-53.0); Hemoglobin 15.3 g/dL (13.5-17.5); IMMATURE GRAN ABSOLUTE AUTO 0.02 K/mm3 (0.00-0.10); IMMATURE GRAN PERCENT AUTO 0 % (0-1); LYMPHOCYTES ABSOLUTE AUTO 1.30 K/mm3 (0.84-5.20); LYMPHOCYTES PERCENT AUTO 21 % (21-46); MONOCYTES ABSOLUTE AUTO 0.66 K/mm3 (0.16-1.47); MONOCYTES PERCENT AUTO 10 % (4-13); Mean Corpuscular HGB Conc 35.4 g/dL (31.5-36.5); Mean Corpuscular Volume 91 fL (80-100); NEUTROPHILS ABSOLUTE AUTO 4.37 K/mm3 (1.96-9.15); NEUTROPHILS PERCENT AUTO 69 % (41-73); NRBC ABSOLUTE 0.00 K/mm3 (0.00-0.02); NRBC Auto 0.0 /100 WBC (0.0-0.2); Platelet Count 144 K/mm3 (150-400); RDW Coefficient Variation 13.5 % (11.7-14.2); RDW Standard Deviation 44.9 fL (35.1-46.3)
[2025-04-01 08:48] VITALS: BP 121/72
--- NOTE | 2025-04-01 10:50 | NUR ---
Patient was sitting on bed awake when this scientific technical writer went to get him for his lab draw. He smiles and willingly has blood drawn. He states he feels "okay". He says his mood is "Coming together, reminds me of my little brother, amplitude between focus energy". He denies thoughts of wanting to kill himself but says he " has thoughts of throwing away". He denies hallucinations. He states that he is not depressed today but that he will be happier tomorrow. "I like to be depressed". He states he has no anxiety and feels invited today. Appearance is disheveled and hair appears greasy. Patient is being strongly encouraged to wash hair/shower. Speech is clear and fluent with a fast rate and is on point for moments and then trails off into words/thoughts that appear to not be based in reality. Thoughts are fast and multiple- intrusive and overabundance. Patient also states he has been practicing astrology today.
--- NOTE | 2025-04-01 18:09 | NUR ---
Please also see previous nursing note-. At the end of this shift, the patient briefly spoke to mom on the phone. The call ended with the patient yelling and becoming upset. He is getting frusterated with being here, and his mom not supporting his desire to come home. The patient states he is feeling lost and drained. He states "I don't know if this is cognition or developmental but what is it". (Clearly stated). He was drawing triangles, squares, arrows and shapes in his journal and he said it helps him solve stuff. Patient asked me how I feel about lying, and asked me if everyone lies. He states he doesn't like lying. He states 'if I am here and tomorrow is then, I guess here are just here now". The patient stayed in his room, drawing on the journal page as I left to come chart. He did not complain of SI, or Hallucination, has shown safe behaviors but continues to be intermitteltly confused-tangetial, seeming to pop into and out of reality based thinking.
[2025-04-01 20:35] VITALS: BP 113/68
--- NOTE | 2025-04-02 05:55 | NUR ---
SHIFT SUMMARY Pt is A&O, calm, cooperative, eye contact is appropriate. Pt s stated mood is okay, but presents as depressed; affect is sad. Pt denies SI, HI, and hallucinations. Pt denies pain or other medical issues. Pt s speech remains somewhat tangential. Pt stayed in his room most of the evening. No PRNs requested. Staff continues to monitor q15m for safety and wellness.
[2025-04-02 08:09] VITALS: BP 120/73
--- NOTE | 2025-04-02 17:13 | NUR ---
SHIFT SUMMARY PT AxOx3-4, PLEASANT AND COOPERATIVE WITH CARE. PT HAS BEEN FOLLOWING HIS TREATMENT PLAN THIS SHIFT INCLUDING TAKING MEDICATIONS PRESCRIBED, ATTENDING MILIEU THERAPY GROUPS AND MINGLING APPROPRIATELY. PT REPORTS FEELING "GOOD, BUT ALWAYS DEPRESSED." DENIES HI/SI AND AVTH. HE WAS ABLE TO HAVE A FAIRLY LINEAR CONVERSATION WITH THIS RN MULTIPLE TIMES TODAY. ALTHOUGH, HE DOES TEND TO TRAIL OFF INTO ODD TANGENTIAL SPEECH AT TIMES, BUT THAT OCCURRED SIGNIFICANTLY LESS WHEN COMPARED TO 1 WEEK AGO. THE CURRENT DC PLAN IS FOR THE PATIENT TO GO HOME WITH HIS MOTHER, SHAWNEE THIS 04/05/25. SENIOR VICE PRESIDENT AND CHIEF INFORMATION OFFICER AND THIS RN WITH LEWIS'S MOTHER ON THE PHONE TODAY TO UPDATE HER ON PLAN OF CARE. BOTH LEWIS AND HIS MOTHER ARE AGREEABLE AND LOOKING FORWARD TO THIS PLAN. PT IS CURRENTLY EATING DINNER IN THE DINING ROOM. DENIES ANY NEEDS AT THIS TIME.
[2025-04-02 20:24] VITALS: BP 112/75
--- NOTE | 2025-04-03 04:14 | NUR ---
Patient is alert and oriented times 3-4. HE expressed excitement about going home this week. He is pleasant with his peers and the staff, however stayed in his room except for snack time. Will continue close observation every 15 minutes for safety and comfort
[2025-04-03 07:46] VITALS: BP 127/73
[2025-04-03 08:45] VITALS: BP 119/77
--- NOTE | 2025-04-03 17:04 | NUR ---
SHIFT SUMMARY PT AxOx3, PLEASANT AND COOPERATIVE WITH CARE. PT HAS CONTINUED TO HAVE LINEAR CONVERSATIONS THIS SHIFT, WITH SOME TANGENTIAL THOUGHT PROCESSES NOTED, PARTICULARLY WHEN CONVERSATIONS CARRY ON BEYOND A FEW MINUTES. PT DENIES SI/HI BUT DID ENDORSE AUDIO HALLUCINATIONS. PT HAS BEEN FOLLOWING HIS TREATMENT PLAN INCLUDING TAKING MEDICATIONS PRESCRIBED, ATTENDING MILIEU THERAPIES AND MINGLING APPROPRIATELY WITH PEERS/STAFF. PT IS AWARE AND AGREEABLE TO DC PLAN WHICH IS CURRENLTY SCHEDULED FOR 04/05/25. PT IS CURRENTLY SITTING IN HIS ROOM, APPEARS TO BE RESPONDING TO INTERNAL STIMULI (TALKING TO HIMSELF). DENIES ANY NEEDS AT THIS TIME.
[2025-04-03 20:45] VITALS: BP 118/81
--- NOTE | 2025-04-04 04:17 | NUR ---
SHIFT SUMMARY Patient is alert and oriented times four, pleasant and cooperative with his peers and staff. He denied SI,HI and AVTH during evening assessment. He is still very upbeat about his discharge on . Slept well first 5-6 hours, then was sitting up or moving about his room for the rest of the night. Will continue close observation every 15 minutes for comfort and safety
[2025-04-04 07:36] VITALS: BP 112/72
--- NOTE | 2025-04-04 17:49 | NUR ---
SHIFT SUMMARY PT IS AOX3 AND IS COOPERATIVE WITH TREATMENT. DENIED SI AND HI, BUT ENDORSES AUDIO HALLUCINATIONS. HAS ATTENDED ALL GROUPS, MEALS, AND INTERACTS APPROPRIATELY WITH HIS PEERS ON THE UNIT. PT IS AWARE OF PENDING DISCHARGE AND IS LOOKING FORWARD TO DISCHARGING. CONTINUES TO BEMOITORED Q15 MINUTES FOR SAFETY AND WELLNESS.
[2025-04-04 20:37] VITALS: BP 114/76
--- NOTE | 2025-04-05 04:23 | NUR ---
Patient is alert and oriented times four. He had a very good sleep last night from 2044 until time of this note. Denied Si,HI and AVTH during evening assessment. He came out for snack, but otherwise stayed in his room. Will continue close obseration every 15 minutes for safety and comfort.
[2025-04-05 08:09] VITALS: BP 141/73
--- NOTE | 2025-04-05 08:39 | NUR ---
IMPORTANT DISCHARGE INFORMATION PATIENT TO BE DISCHARGED TODAY. HIS MOTHER SHAWNEE IS COMING TO PICK HIM UP AROUND NOON. HER PHONE NUMBER IS . ALL PARTIES VERBALIZE AN UNDERSTANDING. PCP AND THE [facility] ACT TEAM ARE AWARE OF LEWIS'S DISCHARGE TODAY. FOLLOW UP WITH PCP DR. BUCHANAN ON 04/16/25 AT 3:20PM. FOLLOW UP WITH THE ACT TEAM ([facility]) FOLLOW UP WITH [facility] FOR SN AND SW FOLLOW UP ON PA WITH YOUR PCP FOR NEUROPSYCH CONSULT WITH DR. ABREU PHARMACY: [facility] IN [place] FAX NUMBER
[2025-04-05] MEDS ORDERED: ATEN25 PO (12:38)
[2025-04-05] MEDS ORDERED: CLOZ25 PO (12:38)
[2025-04-05] MEDS ORDERED: RISP2 PO (12:39)
--- NOTE | 2025-04-05 12:55 | NUR ---
DISCHARGE SUMMARY PT GIVEN HIS BELONGINGS AND FORM SIGNED. HE CHANGED INTO NEW CLOTHES THAT HIS MOTHER BROUGHT FOR HIM. MEDICATIONS WERE FAXED TO [facility] IN [place], [place]. PT WAS GIVEN 2 PACKETS OF D/C INSTRUCTIONS, ONE FOR HIM AND ONE FOR HIS MOTHER. ACKNOWLEDGEMENT OF RECIEPT FORM SIGNED. ALL QUESTIONS WITH HIM AND HIS MOTHER WERE ANSWERED. PT WAS ESCORTED OUTSIDE TO HIS MOTHER'S VEHICLE BY THIS RN.
== END 2025-04-05 12:50 | disposition home or self-care (01) | DRG 885 ==
LOC: BHU 13:08
PROVIDERS: Psychiatry & Neurology Psychiatry; Student in an Organized Health Care Education/Training Program; ADMIT Psychiatry & Neurology Psychiatry
DX: F20.0 Paranoid schizophrenia (principal); R45.851 Suicidal ideations; F84.0 Autistic disorder; D69.59 Other secondary thrombocytopenia; K21.9 Gastro-esophageal reflux disease without esophagitis; T42.4X5A Adverse effect of benzodiazepines, initial encounter; R00.0 Tachycardia, unspecified; Z79.899 Other long term (current) drug therapy
CPT/HCPCS: 36415; 80053; 80061; 83036; 84443; 84484; 85007; 85025; 85027; 85651; 86141; 93005; 93010; A9270; J0401